=== PATIENT | male | born 1965 | race Two or more races ===

== ENCOUNTER 2020-09-03 22:17 | Emergency (ER) | payer MEDICAID ==
[~2020-09-03] VITALS: Ht 165.1 cm; Wt 90.7 kg
[~2020-09-03 22:17] MED LIST: FURO1TAB31 PO; KLOR CON PO; WARF2.5T PO; [UNRECOGNIZED DRUG - OTHER] PO
[2020-09-03 22:21] VITALS: BP 134/81
== END 2020-09-04 00:10 | disposition left against medical advice (07) ==
LOC: ER 22:17
DX: R07.89 Other chest pain (principal); R05 Cough; Z53.21 Procedure and treatment not carried out due to patient leaving prior to being seen by health care provider
CPT/HCPCS: 93005

== ENCOUNTER 2021-08-05 07:53 | Emergency (ER) | payer MEDICAID ==
[~2021-08-05] VITALS: Ht 170.2 cm; Wt 104.3 kg
[2021-08-05 08:39] LABS: Basophils # (auto) 0.1 10 ^3/uL (0-0.2); Basophils % (auto) 0.9 % (0.0-2.0); Eosinophils # (auto) 0.3 10 ^3/uL (0-0.8); Eosinophils % (auto) 4.4 % (0.0-7.0); Hematocrit 45.5 % (41.0-53.0); Lymphocytes # (auto) 2.5 10 ^3/uL (0.4-5.4); Lymphocytes % (auto) 32.5 % (10.0-50.0); Mean Corpuscular Hemoglobin 30.7 pg (28.0-32.0); Mean Corpuscular Hgb Conc. 35.3 g/dL (32.0-36.0); Mean Corpuscular Volume 86.9 fL (80.0-100.0); Monocytes # (auto) 0.7 10 ^3/uL (0-1.3); Monocytes % (auto) 9.6 % (0.0-12.0); Neutrophils % (auto) 52.6 % (37.0-80.0); Nucleated Red Blood Cells % 0.1 %; Red Blood Cells 5.23 10^6/uL (4.5-5.90); Red Cell Distribution Width 13.4 % (11.8-14.3); White Blood Cell 7.7 10^3/uL (4.4-10.8)
[2021-08-05 08:48] LABS: Urine Bacteria FEW /hpf (None Seen); Urine Blood TRACE /uL (Negative); Urine Specific Gravity 1.004 (1.001-1.035); Urine WBC <1 /hpf (0 - 3)
[2021-08-05 08:59] LABS: INR 2.75 (0.9-1.15); Partial Thromboplastin Time 44.2 sec (23.6-33.0)
[2021-08-05 09:00] LABS: Albumin 3.7 g/dL (3.4-5.0); Calcium 8.9 mg/dL (8.5-10.1); Potassium 3.9 mmol/L (3.5-5.1)
[2021-08-05 09:03] LABS: BUN/Creatinine Ratio 19.2; Bilirubin, Total 0.6 mg/dL (0.2-1.0); Total Protein 7.6 g/dL (6.4-8.2)
[2021-08-05] MEDS ORDERED: IOHEXOL 350 MG/ML 100ML IJ ONE (09:22)
[2021-08-05] MEDS ORDERED: AZITHROMYCIN 250 MG TAB PO ONE (14:15)
[2021-08-05] MEDS ORDERED: cefTRIAXone 1GM/50ML D5W 50 ML IV ONE (14:15)
[2021-08-05] MEDS ORDERED: cefTRIAXone SOD 1,000 MG VL ONE (14:51)
[2021-08-05] MEDS ORDERED: LIDOCAINE 1%HCL (LOCAL ANESTH) 10 ML MDV ONE (14:51)
[2021-08-05 14:57] VITALS: BP 142/74
[2021-08-05] MEDS ORDERED: cefTRIAXone W LIDOCAINE 1 GM IM IM ONE (15:00)
[2021-08-05] MEDS ORDERED: ALBUAER3 IN (15:14)
[2021-08-05] MEDS ORDERED: AZIT250T9 PO (15:14)
== END 2021-08-05 16:33 | disposition home or self-care (01) ==
LOC: ER 07:53
DX: J18.9 Pneumonia, unspecified organism (principal); I10 Essential (primary) hypertension; I25.10 Atherosclerotic heart disease of native coronary artery without angina pectoris; E78.5 Hyperlipidemia, unspecified; F17.210 Nicotine dependence, cigarettes, uncomplicated; Z95.1 Presence of aortocoronary bypass graft; Z79.01 Long term (current) use of anticoagulants; Z79.899 Other long term (current) drug therapy
CPT/HCPCS: 36415; 71045; 71275; 80053; 81001; 83880; 84484; 85025; 85610; 85730; 93005; 96372; 99285; J0696; J2001; Q9967

== ENCOUNTER 2021-08-06 15:32 | Inpatient (IN) | payer MEDICAID ==
[~2021-08-06] VITALS: Ht 170.2 cm; Wt 100.0 kg
[2021-08-06] VITALS (9 sets, daily range): BP systolic 98–131; BP diastolic 35–80
[~2021-08-06 15:32] MED LIST changes: +ALBUAER3 IN; +AZIT250T9 PO
[2021-08-06] MEDS ORDERED: ALBUTEROL SULF 2.5 MG/0.5ML(0.5%) NEB SOLN NEB ONE (16:30)
[2021-08-06] MEDS ORDERED: methylPREDNISolone SOD SUCC 125 MG/2 ML VL IV ONE (16:30)
[2021-08-06] MEDS ORDERED: Acetam/CODEINE 120mg/12mg per 5mL UD PO ONE (17:00)
[2021-08-06 17:30] LABS: Hematocrit 40.5 % (41.0-53.0); Hemoglobin 13.8 g/dL (13.5-17.5); Mean Corpuscular Hemoglobin 30.3 pg (28.0-32.0); Mean Corpuscular Hgb Conc. 34.1 g/dL (32.0-36.0); Mean Corpuscular Volume 88.8 fL (80.0-100.0); Red Blood Cells 4.56 10^6/uL (4.5-5.90); Red Cell Distribution Width 13.8 % (11.8-14.3); White Blood Cell 7.9 10^3/uL (4.4-10.8)
[2021-08-06] MEDS ORDERED: AZITHROMYCIN 500MG/ 250ML 250 ML IV ONE ×2 (17:30→18:00)
[2021-08-06] MEDS ORDERED: cefTRIAXone 1GM/50ML D5W 50 ML IV ONE (17:30)
[2021-08-06 17:32] LABS: Basophils % (manual) 0 (0.0-2.0); Blast Cells 0; Metamyelocytes % 0; Myelocytes % 0; Promyelocytes % 0
[2021-08-06 17:37] LABS: Albumin 3.5 g/dL (3.4-5.0); BUN/Creatinine Ratio 18.2; Bilirubin, Total 0.4 mg/dL (0.2-1.0); Calcium 8.4 mg/dL (8.5-10.1); Magnesium 2.2 mg/dL (1.6-2.6); Potassium 3.9 mmol/L (3.5-5.1); Total Protein 7.7 g/dL (6.4-8.2)
[2021-08-06] MEDS ORDERED: SUCCINYLCHOLINE CHLORIDE 20 MG/ML 10ML VIAL IV ONE ×2 (17:39→17:45)
[2021-08-06] MEDS ORDERED: ETOMIDATE (2MG/ML) 20ML VIAL IV ONE ×2 (17:39→17:45)
[2021-08-06] MEDS ORDERED: MIDAZOLAM DRIP 50 mg/50mL 50 ML IV ONE (17:39)
[2021-08-06] MEDS: MIDAZOLAM DRIP 50 mg/50mL 50 ML IV SCH ×3 (17:45→23:10)
[2021-08-06] MEDS ORDERED: fentaNYL Drip 2500mCg/250mlNS 250 ML IV ONE (17:53)
[2021-08-06 18:00] LABS: Band Neutrophils % (manual) 1; Eosinophils % (manual) 6 (0-7); Lymphocytes % (manual) 36 (10.0-50.0); Monocytes % (manual) 5 (0-12); Reactive Lymphocytes 6
[2021-08-06] MEDS: fentaNYL Drip 2500mCg/250mlNS 250 ML IV SCH (18:00)
[2021-08-06] MEDS: NOREPINEPHRINE 8 MG/250ML KIT 250 ML IV SCH (18:00)
[2021-08-06] MEDS: PROPOFOL 100 ML IV SCH ×2 (20:45→23:10)
[2021-08-06] MEDS ORDERED: ONDANSETRON HCL 4 MG/2 ML VIAL IV PRN (21:00)
[2021-08-06] MEDS ORDERED: ACETAMINOPHEN 650 MG RECT SUPP PR PRN (21:00)
[2021-08-06 21:12] LABS: Lactic Acid w/Reflex 4.3 mmol/L (0.4-2.0)
[2021-08-06] MEDS ORDERED: MORPHINE SULFATE INJ 2 MG/ml SYRG IV PRN (21:30)
[2021-08-06] MEDS ORDERED: NITROGLYCERIN 0.4 MG SL TAB SL PRN (21:30)
[2021-08-06 21:41] LABS: Basophils # (auto) 0 10 ^3/uL (0-0.2); Basophils % (auto) 0.4 % (0.0-2.0); Eosinophils # (auto) 0.1 10 ^3/uL (0-0.8); Eosinophils % (auto) 0.5 % (0.0-7.0); Hematocrit 36.2 % (41.0-53.0); Hemoglobin 12.3 g/dL (13.5-17.5); Lymphocytes # (auto) 0.6 10 ^3/uL (0.4-5.4); Lymphocytes % (auto) 4.8 % (10.0-50.0); Mean Corpuscular Hemoglobin 30.3 pg (28.0-32.0); Mean Corpuscular Hgb Conc. 33.9 g/dL (32.0-36.0); Mean Corpuscular Volume 89.2 fL (80.0-100.0); Monocytes # (auto) 0.3 10 ^3/uL (0-1.3); Neutrophils # (auto) 10.4 10 ^3/uL (1.6-8.6); Neutrophils % (auto) 91.3 % (37.0-80.0); Nucleated Red Blood Cells % 0.1 %; Red Blood Cells 4.06 10^6/uL (4.5-5.90); Red Cell Distribution Width 13.8 % (11.8-14.3); White Blood Cell 11.4 10^3/uL (4.4-10.8)
[2021-08-06 22:09] LABS: Albumin 2.9 g/dL (3.4-5.0); Calcium 7.3 mg/dL (8.5-10.1)
[2021-08-06 22:14] LABS: BUN/Creatinine Ratio 24.4; Bilirubin, Total 0.4 mg/dL (0.2-1.0); Total Protein 6.2 g/dL (6.4-8.2)
[2021-08-06 22:21] LABS: Potassium 4.8 mmol/L (3.5-5.1)
[2021-08-06] MEDS: HEPARIN SODIUM (PORCINE) 5000 UNITS/ML 1ML VIAL SC SCH (23:09)
[2021-08-06] MEDS: FAMOTIDINE (10MG/ML) 2ML VL IV SCH (23:09)
[2021-08-06] MEDS: methylPREDNISolone SOD SUCC 40 MG/ML VL IV SCH (23:09)
[2021-08-07] VITALS (104 sets, daily range): BP systolic 85–131; BP diastolic 45–77
[2021-08-07] MEDS: MIDAZOLAM DRIP 50 mg/50mL 50 ML IV SCH ×7 (02:04→22:45)
[2021-08-07] MEDS: NOREPINEPHRINE 8 MG/250ML KIT 250 ML IV SCH (03:38)
[2021-08-07 03:46] LABS: Basophils # (auto) 0 10 ^3/uL (0-0.2); Basophils % (auto) 0.1 % (0.0-2.0); Eosinophils # (auto) 0 10 ^3/uL (0-0.8); Eosinophils % (auto) 0.1 % (0.0-7.0); Hematocrit 38.3 % (41.0-53.0); Lymphocytes # (auto) 0.8 10 ^3/uL (0.4-5.4); Lymphocytes % (auto) 3.7 % (10.0-50.0); Mean Corpuscular Hemoglobin 30.5 pg (28.0-32.0); Mean Corpuscular Hgb Conc. 33.9 g/dL (32.0-36.0); Mean Corpuscular Volume 89.9 fL (80.0-100.0); Monocytes # (auto) 0.9 10 ^3/uL (0-1.3); Monocytes % (auto) 4.3 % (0.0-12.0); Neutrophils # (auto) 19.7 10 ^3/uL (1.6-8.6); Neutrophils % (auto) 91.8 % (37.0-80.0); Nucleated Red Blood Cells % 0.1 %; Red Blood Cells 4.26 10^6/uL (4.5-5.90); White Blood Cell 21.5 10^3/uL (4.4-10.8)
[2021-08-07] MEDS: fentaNYL Drip 2500mCg/250mlNS 250 ML IV SCH ×2 (05:43→16:25)
[2021-08-07] MEDS: methylPREDNISolone SOD SUCC 40 MG/ML VL IV SCH ×3 (05:43→22:55)
[2021-08-07] MEDS ORDERED: DEXTROSE (50%) 50ML SYRG IV PRN (06:45)
[2021-08-07] MEDS: InsuLIN REG 1unit/0.01ml Soln (100units/ml) SC SCH ×3 (07:26→17:44)
[2021-08-07] MEDS: FAMOTIDINE (10MG/ML) 2ML VL IV SCH (09:44)
[2021-08-07] MEDS: cefTRIAXone 1GM/50ML D5W 50 ML IV SCH (09:44)
[2021-08-07] MEDS: HEPARIN SODIUM (PORCINE) 5000 UNITS/ML 1ML VIAL SC SCH (10:00)
[2021-08-07 10:27] LABS: Alanine Aminotransferase 53 U/L (16-61); Alkaline Phosphatase 73 U/L (45-117); Anion Gap 5 (5-15); Aspartate Aminotransferase 58 U/L (15-37); BUN/Creatinine Ratio 20.6; Blood Urea Nitrogen 47 mg/dL (7-18); Calcium 7.4 mg/dL (8.5-10.1); Carbon Dioxide 22 mmol/L (21-32); Chloride 112 mmol/L (98-107); GFR African American 39 mL/min; GFR Non-African American 32 mL/min; Glucose 178 mg/dL (74-106); Sodium 139 mmol/L (136-145)
[2021-08-07 10:28] LABS: Albumin 3.2 g/dL (3.4-5.0); Bilirubin, Total 0.4 mg/dL (0.2-1.0)
[2021-08-07 10:29] LABS: Potassium 7.5 mmol/L (3.5-5.1)
[2021-08-07] MEDS: AZITHROMYCIN 500MG/ 250ML 250 ML IV SCH (11:11)
[2021-08-07 11:24] LABS: INR 2.86 (0.9-1.15)
[2021-08-07] MEDS: PANTOPRAZOLE 40 MG/10 ML VIAL INJ IV SCH ×2 (11:27→22:44)
[2021-08-07 12:13] LABS: Albumin 3.2 g/dL (3.4-5.0); Calcium 7.2 mg/dL (8.5-10.1)
[2021-08-07 12:16] LABS: BUN/Creatinine Ratio 22.7; Bilirubin, Total 0.3 mg/dL (0.2-1.0)
[2021-08-07 12:17] LABS: Partial Thromboplastin Time 44.2 sec (23.6-33.0)
[2021-08-07 12:25] LABS: Potassium 7.3 mmol/L (3.5-5.1)
[2021-08-07] MEDS ORDERED: SODIUM BICARBONATE 8.4% INJ 50ML SYRINGE IV ONE (12:45)
[2021-08-07] MEDS ORDERED: InsuLIN REG 1unit/0.01ml Soln (100units/ml) IV ONE ×2 (12:45)
[2021-08-07] MEDS ORDERED: SODIUM BICARBONATE 8.4 % INJ 50ML VIAL IV ONE ×3 (12:45→17:30)
[2021-08-07] MEDS ORDERED: SODIUM CHLORIDE 0.9% 1,000 ML IV SCH (12:45)
[2021-08-07] MEDS ORDERED: CALCIUM GLUC 1,000mg/50ml-NS 50 ML IV ONE (12:45)
[2021-08-07] MEDS ORDERED: ALBUTEROL SULF 2.5 MG/0.5ML(0.5%) NEB SOLN NEB ONE (12:45)
[2021-08-07] MEDS ORDERED: DEXTROSE (50%) 50ML SYRG IV ONE ×2 (12:45)
[2021-08-07] MEDS ORDERED: FUROSEMIDE 20 MG/2 ML VIAL IV ONE (12:45)
[2021-08-07] MEDS ORDERED: FUROSEMIDE 40 MG/4 ML VIAL IV ONE (13:00)
[2021-08-07] MEDS: ALBUTEROL SULF 2.5 MG/0.5ML(0.5%) NEB SOLN NEB ONE ×2 (13:03→15:47)
[2021-08-07] MEDS: ACCU-CHEK COMFORT CURVE STRIP VI SCH ×2 (13:27→17:44)
[2021-08-07] MEDS: SODIUM ZIRCONIUM CYCL 10 GM PAK GT SCH ×2 (15:15→22:44)
[2021-08-07] MEDS: DOPamine 1600MCG/ML D5W 250 ML IV SCH (16:04)
[2021-08-07 16:18] LABS: Protein, Urine 17.7 mg/dL (0.0-11.9)
[2021-08-07] MEDS: SODIUM BICARBONATE 50ML VIAL 50 ML in SOD CHL 0.45% 1,000 ML IV SCH ×2 (16:26→22:45)
[2021-08-07 17:36] LABS: Urine Blood 3+ /uL (Negative); Urine Specific Gravity 1.014 (1.001-1.035)
[2021-08-07 18:06] LABS: BUN/Creatinine Ratio 29.6; Calcium 7.8 mg/dL (8.5-10.1); Potassium 4.9 mmol/L (3.5-5.1)
[2021-08-07 19:39] LABS: Urine Bacteria 1+ /hpf (None Seen); Urine Mucus MODERATE (None Seen)
[2021-08-07 19:41] LABS: Urine Amorphous Sediment Moderate /hpf
[2021-08-07] MEDS ORDERED: DOCU100T15 PO (21:31)
[2021-08-07] MEDS ORDERED: RALT400T PO (21:31)
[2021-08-07] MEDS ORDERED: FURO20TA3 PO (21:31)
[2021-08-07] MEDS ORDERED: CHOL20007 OR (21:31)
[2021-08-07] MEDS ORDERED: ETRA100T3 PO (21:31)
[2021-08-07] MEDS ORDERED: MULT-930 PO (21:31)
[2021-08-07] MEDS ORDERED: WARF5TAB71 PO (21:31)
[2021-08-07] MEDS ORDERED: ATOR10TA PO (21:31)
[2021-08-07] MEDS ORDERED: CHOL20007 PO (21:31)
[2021-08-07] MEDS ORDERED: PANT40TA2 PO (21:31)
[2021-08-07] MEDS ORDERED: NIFE1TAB31 PO (21:31)
[2021-08-07] MEDS ORDERED: DARU1TAB2 PO (21:31)
[2021-08-07] MEDS ORDERED: LISI-716 PO (21:31)
[2021-08-07] MEDS ORDERED: ATEN-60 PO (21:31)
[2021-08-08] VITALS (107 sets, daily range): BP systolic 105–160; BP diastolic 45–97
[2021-08-08] MEDS: ACCU-CHEK COMFORT CURVE STRIP VI SCH ×4 (00:19→17:50)
[2021-08-08] MEDS: InsuLIN REG 1unit/0.01ml Soln (100units/ml) SC SCH ×4 (00:20→17:50)
[2021-08-08] MEDS: MIDAZOLAM DRIP 50 mg/50mL 50 ML IV SCH ×6 (01:20→22:55)
[2021-08-08 03:53] LABS: Basophils # (auto) 0 10 ^3/uL (0-0.2); Basophils % (auto) 0.1 % (0.0-2.0); Eosinophils # (auto) 0 10 ^3/uL (0-0.8); Hematocrit 34.8 % (41.0-53.0); Hemoglobin 11.9 g/dL (13.5-17.5); Lymphocytes # (auto) 0.7 10 ^3/uL (0.4-5.4); Lymphocytes % (auto) 5.5 % (10.0-50.0); Mean Corpuscular Hemoglobin 30.4 pg (28.0-32.0); Mean Corpuscular Hgb Conc. 34.3 g/dL (32.0-36.0); Mean Corpuscular Volume 88.8 fL (80.0-100.0); Monocytes # (auto) 0.7 10 ^3/uL (0-1.3); Monocytes % (auto) 5.9 % (0.0-12.0); Neutrophils # (auto) 10.6 10 ^3/uL (1.6-8.6); Neutrophils % (auto) 88.5 % (37.0-80.0); Red Blood Cells 3.92 10^6/uL (4.5-5.90); Red Cell Distribution Width 13.8 % (11.8-14.3)
[2021-08-08 04:11] LABS: INR 2.18 (0.9-1.15); Partial Thromboplastin Time 40.6 sec (23.6-33.0)
[2021-08-08 04:12] LABS: BUN/Creatinine Ratio 32.4; Calcium 7.5 mg/dL (8.5-10.1); Potassium 4.7 mmol/L (3.5-5.1)
[2021-08-08] MEDS: fentaNYL Drip 2500mCg/250mlNS 250 ML IV SCH ×2 (05:15→17:05)
[2021-08-08] MEDS: SODIUM BICARBONATE 50ML VIAL 50 ML in SOD CHL 0.45% 1,000 ML IV SCH ×4 (05:22→22:00)
[2021-08-08] MEDS: SODIUM ZIRCONIUM CYCL 10 GM PAK GT SCH (06:09)
[2021-08-08] MEDS: methylPREDNISolone SOD SUCC 40 MG/ML VL IV SCH ×3 (06:09→22:10)
[2021-08-08] MEDS: PROPOFOL 100 ML IV SCH ×2 (07:30→11:48)
[2021-08-08] MEDS: cefTRIAXone 1GM/50ML D5W 50 ML IV SCH (09:02)
[2021-08-08] MEDS: AZITHROMYCIN 500MG/ 250ML 250 ML IV SCH (09:17)
[2021-08-08] MEDS: PANTOPRAZOLE 40 MG/10 ML VIAL INJ IV SCH ×2 (09:17→22:10)
[2021-08-08 13:45] LABS: Hepatitis C Antibody Positive (Negative)
[2021-08-08] MEDS: DOPamine 1600MCG/ML D5W 250 ML IV SCH (15:15)
[2021-08-08] MEDS: NOREPINEPHRINE 8 MG/250ML KIT 250 ML IV SCH (17:09)
[2021-08-08] MEDS: SODIUM CHLOR 0.9% PF (SALINE LOCK) 10ML VIAL/SYR IV SCH (22:10)
[2021-08-09] VITALS (105 sets, daily range): BP systolic 114–181; BP diastolic 52–104
[2021-08-09] MEDS: InsuLIN REG 1unit/0.01ml Soln (100units/ml) SC SCH ×5 (00:58→23:45)
[2021-08-09] MEDS: MIDAZOLAM DRIP 50 mg/50mL 50 ML IV SCH ×6 (02:40→20:33)
[2021-08-09] MEDS: SODIUM BICARBONATE 50ML VIAL 50 ML in SOD CHL 0.45% 1,000 ML IV SCH (05:44)
[2021-08-09] MEDS: methylPREDNISolone SOD SUCC 40 MG/ML VL IV SCH ×3 (05:56→22:07)
[2021-08-09] MEDS: ACCU-CHEK COMFORT CURVE STRIP VI SCH ×5 (06:04→23:45)
[2021-08-09 07:49] LABS: Basophils # (auto) 0 10 ^3/uL (0-0.2); Basophils % (auto) 0.3 % (0.0-2.0); Eosinophils # (auto) 0.1 10 ^3/uL (0-0.8); Eosinophils % (auto) 0.6 % (0.0-7.0); Hematocrit 30.2 % (41.0-53.0); Hemoglobin 10.7 g/dL (13.5-17.5); Lymphocytes # (auto) 0.6 10 ^3/uL (0.4-5.4); Lymphocytes % (auto) 5.9 % (10.0-50.0); Mean Corpuscular Hemoglobin 31.4 pg (28.0-32.0); Mean Corpuscular Hgb Conc. 35.3 g/dL (32.0-36.0); Mean Corpuscular Volume 88.8 fL (80.0-100.0); Monocytes # (auto) 0.7 10 ^3/uL (0-1.3); Monocytes % (auto) 6.3 % (0.0-12.0); Neutrophils # (auto) 9.1 10 ^3/uL (1.6-8.6); Neutrophils % (auto) 86.9 % (37.0-80.0); Nucleated Red Blood Cells % 0.1 %; White Blood Cell 10.4 10^3/uL (4.4-10.8)
[2021-08-09 08:06] LABS: Albumin 2.4 g/dL (3.4-5.0); Potassium 4.2 mmol/L (3.5-5.1)
[2021-08-09 08:10] LABS: BUN/Creatinine Ratio 50.5; Bilirubin, Total 0.8 mg/dL (0.2-1.0); Total Protein 5.3 g/dL (6.4-8.2)
[2021-08-09] MEDS: hydrALAZINE HCL 20 MG/ML VL IV PRN (08:16)
[2021-08-09] MEDS: cefTRIAXone 1GM/50ML D5W 50 ML IV SCH (09:17)
[2021-08-09] MEDS: SODIUM CHLOR 0.9% PF (SALINE LOCK) 10ML VIAL/SYR IV SCH ×2 (09:19→22:08)
[2021-08-09] MEDS: PANTOPRAZOLE 40 MG/10 ML VIAL INJ IV SCH ×2 (09:19→22:08)
[2021-08-09] MEDS: AZITHROMYCIN 500MG/ 250ML 250 ML IV SCH (09:19)
[2021-08-09] MEDS ORDERED: SOD CHL 0.45% 1,000 ML IV SCH (09:45)
[2021-08-09] MEDS ORDERED: POTASSIUM EFFERVESENT TAB 25 MEQ PO ONE (12:30)
[2021-08-09] MEDS ORDERED: FUROSEMIDE 40 MG/4 ML VIAL IV ONE (12:30)
[2021-08-09] MEDS: PROPOFOL 100 ML IV SCH ×3 (15:11→23:03)
[2021-08-09] MEDS: DOPamine 1600MCG/ML D5W 250 ML IV SCH (15:24)
[2021-08-09] MEDS: fentaNYL Drip 2500mCg/250mlNS 250 ML IV SCH (17:43)
[2021-08-09] MEDS: ATORVASTATIN 20 MG TAB PO SCH (22:08)
[2021-08-10] VITALS (101 sets, daily range): BP systolic 118–153; BP diastolic 74–91
[2021-08-10] MEDS: MIDAZOLAM DRIP 50 mg/50mL 50 ML IV SCH ×9 (00:45→23:55)
[2021-08-10] MEDS: PROPOFOL 100 ML IV SCH ×6 (02:11→22:48)
[2021-08-10 03:44] LABS: Basophils # (auto) 0 10 ^3/uL (0-0.2); Basophils % (auto) 0.1 % (0.0-2.0); Eosinophils # (auto) 0 10 ^3/uL (0-0.8); Eosinophils % (auto) 0.3 % (0.0-7.0); Hematocrit 32.9 % (41.0-53.0); Hemoglobin 11.4 g/dL (13.5-17.5); Lymphocytes # (auto) 0.8 10 ^3/uL (0.4-5.4); Lymphocytes % (auto) 8.2 % (10.0-50.0); Mean Corpuscular Hemoglobin 30.6 pg (28.0-32.0); Mean Corpuscular Hgb Conc. 34.6 g/dL (32.0-36.0); Mean Corpuscular Volume 88.5 fL (80.0-100.0); Monocytes # (auto) 0.7 10 ^3/uL (0-1.3); Monocytes % (auto) 6.4 % (0.0-12.0); Neutrophils # (auto) 8.6 10 ^3/uL (1.6-8.6); Red Blood Cells 3.72 10^6/uL (4.5-5.90); Red Cell Distribution Width 13.7 % (11.8-14.3); White Blood Cell 10.1 10^3/uL (4.4-10.8)
[2021-08-10 03:58] LABS: BUN/Creatinine Ratio 46.5; Calcium 7.5 mg/dL (8.5-10.1); Potassium 4.6 mmol/L (3.5-5.1)
[2021-08-10] MEDS: fentaNYL Drip 2500mCg/250mlNS 250 ML IV SCH ×2 (04:35→17:10)
[2021-08-10] MEDS: ACCU-CHEK COMFORT CURVE STRIP VI SCH ×3 (05:48→18:09)
[2021-08-10] MEDS: InsuLIN REG 1unit/0.01ml Soln (100units/ml) SC SCH ×3 (05:48→18:00)
[2021-08-10] MEDS: methylPREDNISolone SOD SUCC 40 MG/ML VL IV SCH ×3 (05:48→22:00)
[2021-08-10] MEDS: cefTRIAXone 1GM/50ML D5W 50 ML IV SCH (09:01)
[2021-08-10] MEDS: SODIUM CHLOR 0.9% PF (SALINE LOCK) 10ML VIAL/SYR IV SCH ×2 (10:23→22:00)
[2021-08-10] MEDS: PANTOPRAZOLE 40 MG/10 ML VIAL INJ IV SCH ×2 (10:23→22:00)
[2021-08-10] MEDS: SOD CHL 0.45% 1,000 ML IV SCH ×2 (11:27→22:48)
[2021-08-10] MEDS ORDERED: PIPERACILLIN-TAZOB 3.375GM 100 ML IV SCH (12:00)
[2021-08-10 12:23] LABS: INR 1.14 (0.9-1.15)
[2021-08-10] MEDS: ATORVASTATIN 20 MG TAB PO SCH (22:00)
[2021-08-11] VITALS (102 sets, daily range): BP systolic 112–170; BP diastolic 73–111
[2021-08-11] MEDS: ACCU-CHEK COMFORT CURVE STRIP VI SCH ×5 (00:27→23:59)
[2021-08-11] MEDS: PROPOFOL 100 ML IV SCH ×6 (02:00→21:15)
[2021-08-11] MEDS: MIDAZOLAM DRIP 50 mg/50mL 50 ML IV SCH ×6 (03:30→22:34)
[2021-08-11 04:19] LABS: Basophils # (auto) 0 10 ^3/uL (0-0.2); Basophils % (auto) 0.2 % (0.0-2.0); Eosinophils # (auto) 0 10 ^3/uL (0-0.8); Hematocrit 35.2 % (41.0-53.0); Hemoglobin 12.4 g/dL (13.5-17.5); Lymphocytes # (auto) 1.1 10 ^3/uL (0.4-5.4); Lymphocytes % (auto) 11.1 % (10.0-50.0); Mean Corpuscular Hemoglobin 31.2 pg (28.0-32.0); Mean Corpuscular Hgb Conc. 35.1 g/dL (32.0-36.0); Mean Corpuscular Volume 88.8 fL (80.0-100.0); Monocytes # (auto) 0.8 10 ^3/uL (0-1.3); Monocytes % (auto) 7.9 % (0.0-12.0); Neutrophils # (auto) 7.9 10 ^3/uL (1.6-8.6); Neutrophils % (auto) 80.8 % (37.0-80.0); Nucleated Red Blood Cells % 0.3 %; Red Blood Cells 3.97 10^6/uL (4.5-5.90); Red Cell Distribution Width 13.6 % (11.8-14.3); White Blood Cell 9.8 10^3/uL (4.4-10.8)
[2021-08-11 04:35] LABS: BUN/Creatinine Ratio 42.2; Calcium 7.6 mg/dL (8.5-10.1)
[2021-08-11] MEDS: fentaNYL Drip 2500mCg/250mlNS 250 ML IV SCH ×2 (05:00→18:43)
[2021-08-11] MEDS: DOPamine 1600MCG/ML D5W 250 ML IV SCH (05:55)
[2021-08-11] MEDS: InsuLIN REG 1unit/0.01ml Soln (100units/ml) SC SCH ×5 (05:59→23:59)
[2021-08-11] MEDS: methylPREDNISolone SOD SUCC 40 MG/ML VL IV SCH ×3 (06:04→22:35)
[2021-08-11] MEDS ORDERED: EPINEPHrine HCL 1 MG/1 ML AMP ONE (08:54)
[2021-08-11] MEDS ORDERED: SODIUM CHLORIDE LOCK 0 ML ONE (08:54)
[2021-08-11] MEDS ORDERED: MIDAZOLAM HCL 5 MG/ML-1ML VIAL ONE (08:55)
[2021-08-11] MEDS ORDERED: LIDOCAINE HCL 2% TOP JELLY 5ML TOP ONE (08:56)
[2021-08-11] MEDS ORDERED: LIDOCAINE 2%HCL (LOCAL ANESTH.) INJ 20ML MDV ONE (08:56)
[2021-08-11] MEDS: PANTOPRAZOLE 40 MG/10 ML VIAL INJ IV SCH ×2 (10:00→22:34)
[2021-08-11] MEDS: SODIUM CHLOR 0.9% PF (SALINE LOCK) 10ML VIAL/SYR IV SCH ×2 (10:00→22:35)
[2021-08-11] MEDS: ATORVASTATIN 20 MG TAB PO SCH (22:35)
[2021-08-12] VITALS (101 sets, daily range): BP systolic 118–159; BP diastolic 72–92
[2021-08-12] MEDS: PROPOFOL 100 ML IV SCH ×4 (00:41→20:42)
[2021-08-12] MEDS: MIDAZOLAM DRIP 50 mg/50mL 50 ML IV SCH ×8 (02:09→22:53)
[2021-08-12 03:56] LABS: Basophils # (auto) 0 10 ^3/uL (0-0.2); Basophils % (auto) 0.3 % (0.0-2.0); Eosinophils # (auto) 0 10 ^3/uL (0-0.8); Hematocrit 32.7 % (41.0-53.0); Hemoglobin 11.6 g/dL (13.5-17.5); Lymphocytes # (auto) 1.2 10 ^3/uL (0.4-5.4); Lymphocytes % (auto) 11.3 % (10.0-50.0); Mean Corpuscular Hemoglobin 31.3 pg (28.0-32.0); Mean Corpuscular Hgb Conc. 35.4 g/dL (32.0-36.0); Mean Corpuscular Volume 88.4 fL (80.0-100.0); Monocytes # (auto) 0.9 10 ^3/uL (0-1.3); Monocytes % (auto) 9.1 % (0.0-12.0); Neutrophils # (auto) 8.2 10 ^3/uL (1.6-8.6); Neutrophils % (auto) 79.3 % (37.0-80.0); Nucleated Red Blood Cells % 0.2 %; Red Cell Distribution Width 13.3 % (11.8-14.3); White Blood Cell 10.3 10^3/uL (4.4-10.8)
[2021-08-12 04:16] LABS: INR 1.12 (0.9-1.15); Partial Thromboplastin Time 23.4 sec (23.6-33.0)
[2021-08-12 04:17] LABS: Calcium 7.8 mg/dL (8.5-10.1); Potassium 4.7 mmol/L (3.5-5.1)
[2021-08-12] MEDS: fentaNYL Drip 2500mCg/250mlNS 250 ML IV SCH ×2 (04:34→16:01)
[2021-08-12] MEDS: ACCU-CHEK COMFORT CURVE STRIP VI SCH ×3 (06:00→17:55)
[2021-08-12] MEDS: InsuLIN REG 1unit/0.01ml Soln (100units/ml) SC SCH ×3 (06:30→17:54)
[2021-08-12] MEDS: methylPREDNISolone SOD SUCC 40 MG/ML VL IV SCH ×3 (06:30→22:03)
[2021-08-12] MEDS: PANTOPRAZOLE 40 MG/10 ML VIAL INJ IV SCH ×2 (09:20→22:02)
[2021-08-12] MEDS: SODIUM CHLOR 0.9% PF (SALINE LOCK) 10ML VIAL/SYR IV SCH ×2 (09:20→22:02)
[2021-08-12] MEDS ORDERED: HEPARIN SODIUM (PORCINE) 5000 UNITS/ML 1ML VIAL IV ONE (13:30)
[2021-08-12] MEDS ORDERED: HEPARIN DRIP/D5W 100UNITS/ML 250 ML IV SCH (13:30)
[2021-08-12 14:23] LABS: Basophils # (auto) 0.1 10 ^3/uL (0-0.2); Basophils % (auto) 0.6 % (0.0-2.0); Eosinophils # (auto) 0 10 ^3/uL (0-0.8); Hematocrit 33.5 % (41.0-53.0); Hemoglobin 11.8 g/dL (13.5-17.5); Lymphocytes # (auto) 1.4 10 ^3/uL (0.4-5.4); Lymphocytes % (auto) 13.6 % (10.0-50.0); Mean Corpuscular Hemoglobin 31.1 pg (28.0-32.0); Mean Corpuscular Hgb Conc. 35.2 g/dL (32.0-36.0); Mean Corpuscular Volume 88.2 fL (80.0-100.0); Monocytes # (auto) 1.1 10 ^3/uL (0-1.3); Monocytes % (auto) 10.5 % (0.0-12.0); Neutrophils # (auto) 7.9 10 ^3/uL (1.6-8.6); Neutrophils % (auto) 75.3 % (37.0-80.0); Nucleated Red Blood Cells % 0.3 %; Red Cell Distribution Width 13.3 % (11.8-14.3); White Blood Cell 10.5 10^3/uL (4.4-10.8)
[2021-08-12 14:44] LABS: INR 1.1 (0.9-1.15); Partial Thromboplastin Time 22.2 sec (23.6-33.0)
[2021-08-12] MEDS: HEPARIN DRIP/D5W 100UNITS/ML 250 ML IV SCH (16:43)
[2021-08-12] MEDS: ATORVASTATIN 20 MG TAB PO SCH (22:03)
[2021-08-12 23:38] LABS: INR 1.13 (0.9-1.15)
[2021-08-13] VITALS (103 sets, daily range): BP systolic 103–150; BP diastolic 68–102
[2021-08-13] MEDS: ACCU-CHEK COMFORT CURVE STRIP VI SCH ×5 (00:20→23:40)
[2021-08-13] MEDS: PROPOFOL 100 ML IV SCH ×6 (00:21→23:09)
[2021-08-13] MEDS: MIDAZOLAM DRIP 50 mg/50mL 50 ML IV SCH ×7 (02:20→23:09)
[2021-08-13] MEDS: fentaNYL Drip 2500mCg/250mlNS 250 ML IV SCH ×2 (04:26→08:32)
[2021-08-13 05:52] LABS: Basophils # (auto) 0 10 ^3/uL (0-0.2); Basophils % (auto) 0.3 % (0.0-2.0); Eosinophils # (auto) 0.1 10 ^3/uL (0-0.8); Eosinophils % (auto) 0.7 % (0.0-7.0); Hematocrit 34.1 % (41.0-53.0); Lymphocytes # (auto) 1.4 10 ^3/uL (0.4-5.4); Lymphocytes % (auto) 13.4 % (10.0-50.0); Mean Corpuscular Hemoglobin 31.1 pg (28.0-32.0); Mean Corpuscular Hgb Conc. 35.1 g/dL (32.0-36.0); Mean Corpuscular Volume 88.5 fL (80.0-100.0); Monocytes # (auto) 1.1 10 ^3/uL (0-1.3); Monocytes % (auto) 10.6 % (0.0-12.0); Neutrophils # (auto) 7.8 10 ^3/uL (1.6-8.6); Nucleated Red Blood Cells % 0.5 %; Red Blood Cells 3.85 10^6/uL (4.5-5.90); Red Cell Distribution Width 13.1 % (11.8-14.3); White Blood Cell 10.4 10^3/uL (4.4-10.8)
[2021-08-13] MEDS: InsuLIN REG 1unit/0.01ml Soln (100units/ml) SC SCH ×5 (06:00→23:40)
[2021-08-13] MEDS: methylPREDNISolone SOD SUCC 40 MG/ML VL IV SCH ×3 (06:00→21:02)
[2021-08-13 06:01] LABS: Calcium 7.8 mg/dL (8.5-10.1); Potassium 4.8 mmol/L (3.5-5.1)
[2021-08-13 06:03] LABS: INR 1.14 (0.9-1.15); Partial Thromboplastin Time 40.6 sec (23.6-33.0)
[2021-08-13 06:04] LABS: BUN/Creatinine Ratio 52.5
[2021-08-13] MEDS: SODIUM CHLOR 0.9% PF (SALINE LOCK) 10ML VIAL/SYR IV SCH ×2 (10:02→21:02)
[2021-08-13] MEDS: HEPARIN DRIP/D5W 100UNITS/ML 250 ML IV SCH (10:05)
[2021-08-13] MEDS: PANTOPRAZOLE 40 MG/10 ML VIAL INJ IV SCH ×2 (11:05→21:02)
[2021-08-13 12:22] LABS: INR 1.21 (0.9-1.15); Partial Thromboplastin Time 65.1 sec (23.6-33.0)
[2021-08-13 20:28] LABS: INR 1.13 (0.9-1.15)
[2021-08-13 20:41] LABS: Partial Thromboplastin Time 97.1 sec (23.6-33.0)
[2021-08-13] MEDS: ATORVASTATIN 20 MG TAB PO SCH (21:02)
[2021-08-14] VITALS (104 sets, daily range): BP systolic 104–129; BP diastolic 65–81
[2021-08-14] MEDS: MIDAZOLAM DRIP 50 mg/50mL 50 ML IV SCH ×7 (03:38→17:43)
[2021-08-14] MEDS: HEPARIN DRIP/D5W 100UNITS/ML 250 ML IV SCH (03:39)
[2021-08-14] MEDS: PROPOFOL 100 ML IV SCH ×4 (03:40→16:00)
[2021-08-14] MEDS: fentaNYL Drip 2500mCg/250mlNS 250 ML IV SCH (03:41)
[2021-08-14 05:22] LABS: Basophils # (auto) 0 10 ^3/uL (0-0.2); Basophils % (auto) 0.4 % (0.0-2.0); Eosinophils # (auto) 0 10 ^3/uL (0-0.8); Eosinophils % (auto) 0.2 % (0.0-7.0); Hematocrit 35.5 % (41.0-53.0); Hemoglobin 12.2 g/dL (13.5-17.5); Lymphocytes # (auto) 1.7 10 ^3/uL (0.4-5.4); Lymphocytes % (auto) 13.8 % (10.0-50.0); Mean Corpuscular Hemoglobin 30.7 pg (28.0-32.0); Mean Corpuscular Hgb Conc. 34.3 g/dL (32.0-36.0); Mean Corpuscular Volume 89.7 fL (80.0-100.0); Monocytes # (auto) 1.1 10 ^3/uL (0-1.3); Neutrophils # (auto) 9.4 10 ^3/uL (1.6-8.6); Neutrophils % (auto) 76.6 % (37.0-80.0); Nucleated Red Blood Cells % 0.2 %; Red Blood Cells 3.96 10^6/uL (4.5-5.90); Red Cell Distribution Width 13.4 % (11.8-14.3); White Blood Cell 12.2 10^3/uL (4.4-10.8)
[2021-08-14 05:35] LABS: INR 1.16 (0.9-1.15); Partial Thromboplastin Time 68.9 sec (23.6-33.0)
[2021-08-14] MEDS: methylPREDNISolone SOD SUCC 40 MG/ML VL IV SCH ×3 (05:38→20:26)
[2021-08-14 05:45] LABS: Albumin 2.6 g/dL (3.4-5.0); Calcium 8.1 mg/dL (8.5-10.1); Potassium 4.7 mmol/L (3.5-5.1)
[2021-08-14 05:48] LABS: BUN/Creatinine Ratio 45.2
[2021-08-14 05:51] LABS: Bilirubin, Total 0.8 mg/dL (0.2-1.0); Total Protein 5.6 g/dL (6.4-8.2)
[2021-08-14] MEDS: ACCU-CHEK COMFORT CURVE STRIP VI SCH ×3 (05:54→17:49)
[2021-08-14] MEDS: InsuLIN REG 1unit/0.01ml Soln (100units/ml) SC SCH ×3 (05:54→17:48)
[2021-08-14] MEDS: PANTOPRAZOLE 40 MG/10 ML VIAL INJ IV SCH ×2 (09:31→20:27)
[2021-08-14] MEDS: SODIUM CHLOR 0.9% PF (SALINE LOCK) 10ML VIAL/SYR IV SCH ×2 (09:31→20:27)
[2021-08-14 12:01] LABS: INR 1.14 (0.9-1.15); Partial Thromboplastin Time 68.5 sec (23.6-33.0)
[2021-08-14 17:14] LABS: INR 1.16 (0.9-1.15); Partial Thromboplastin Time 68.2 sec (23.6-33.0)
[2021-08-14] MEDS: ATORVASTATIN 20 MG TAB PO SCH (20:27)
[2021-08-15] VITALS (91 sets, daily range): BP systolic 93–131; BP diastolic 61–85
[2021-08-15] MEDS: MIDAZOLAM DRIP 50 mg/50mL 50 ML IV SCH ×7 (00:18→21:20)
[2021-08-15] MEDS: ACCU-CHEK COMFORT CURVE STRIP VI SCH ×5 (00:18→23:20)
[2021-08-15] MEDS: HEPARIN DRIP/D5W 100UNITS/ML 250 ML IV SCH (00:19)
[2021-08-15] MEDS: PROPOFOL 100 ML IV SCH ×5 (00:20→21:50)
[2021-08-15 04:58] LABS: Albumin 2.5 g/dL (3.4-5.0); BUN/Creatinine Ratio 42.9; Potassium 4.9 mmol/L (3.5-5.1)
[2021-08-15 05:01] LABS: Bilirubin, Total 0.8 mg/dL (0.2-1.0); Total Protein 5.7 g/dL (6.4-8.2)
[2021-08-15] MEDS: InsuLIN REG 1unit/0.01ml Soln (100units/ml) SC SCH ×5 (05:03→23:20)
[2021-08-15 05:04] LABS: INR 1.16 (0.9-1.15)
[2021-08-15 05:14] LABS: Hematocrit 35.5 % (41.0-53.0); Hemoglobin 11.7 g/dL (13.5-17.5); Mean Corpuscular Hemoglobin 29.6 pg (28.0-32.0); Mean Corpuscular Volume 89.7 fL (80.0-100.0); Red Blood Cells 3.96 10^6/uL (4.5-5.90); Red Cell Distribution Width 13.7 % (11.8-14.3); White Blood Cell 12.7 10^3/uL (4.4-10.8)
[2021-08-15 05:16] LABS: Basophils % (manual) 0 (0.0-2.0); Blast Cells 0; Eosinophils % (manual) 0 (0-7); Metamyelocytes % 0; Myelocytes % 0; Promyelocytes % 0; Reactive Lymphocytes 0
[2021-08-15] MEDS: methylPREDNISolone SOD SUCC 40 MG/ML VL IV SCH ×3 (05:55→21:49)
[2021-08-15] MEDS: PANTOPRAZOLE 40 MG/10 ML VIAL INJ IV SCH ×2 (09:40→21:49)
[2021-08-15] MEDS: SODIUM CHLOR 0.9% PF (SALINE LOCK) 10ML VIAL/SYR IV SCH ×2 (09:40→21:49)
[2021-08-15 10:34] LABS: INR 1.17 (0.9-1.15); Partial Thromboplastin Time 66.5 sec (23.6-33.0)
[2021-08-15 11:52] LABS: Band Neutrophils % (manual) 2; Lymphocytes % (manual) 16 (10.0-50.0); Monocytes % (manual) 5 (0-12)
[2021-08-15] MEDS: fentaNYL Drip 2500mCg/250mlNS 250 ML IV SCH (13:18)
[2021-08-15 17:49] LABS: INR 1.16 (0.9-1.15); Partial Thromboplastin Time 58.4 sec (23.6-33.0)
[2021-08-15] MEDS: ATORVASTATIN 20 MG TAB PO SCH (21:50)
[2021-08-15 23:44] LABS: INR 1.16 (0.9-1.15)
[2021-08-16] VITALS (108 sets, daily range): BP systolic 96–150; BP diastolic 56–94
[2021-08-16] MEDS: MIDAZOLAM DRIP 50 mg/50mL 50 ML IV SCH ×8 (03:57→23:19)
[2021-08-16 04:10] LABS: Hematocrit 34.8 % (41.0-53.0); Hemoglobin 11.9 g/dL (13.5-17.5); Mean Corpuscular Hemoglobin 30.4 pg (28.0-32.0); Mean Corpuscular Hgb Conc. 34.1 g/dL (32.0-36.0); Mean Corpuscular Volume 89.2 fL (80.0-100.0); Red Cell Distribution Width 13.5 % (11.8-14.3)
[2021-08-16 04:22] LABS: Basophils % (manual) 0 (0.0-2.0); Blast Cells 0; Eosinophils % (manual) 0 (0-7); Promyelocytes % 0; Reactive Lymphocytes 0
[2021-08-16 04:26] LABS: Albumin 2.6 g/dL (3.4-5.0); Calcium 8.2 mg/dL (8.5-10.1); Potassium 4.9 mmol/L (3.5-5.1)
[2021-08-16 04:28] LABS: BUN/Creatinine Ratio 40.7
[2021-08-16 04:31] LABS: Bilirubin, Total 0.8 mg/dL (0.2-1.0); Total Protein 5.6 g/dL (6.4-8.2)
[2021-08-16 04:57] LABS: Band Neutrophils % (manual) 7; Lymphocytes % (manual) 8 (10.0-50.0); Metamyelocytes % 2; Monocytes % (manual) 3 (0-12); Myelocytes % 3
[2021-08-16] MEDS: InsuLIN REG 1unit/0.01ml Soln (100units/ml) SC SCH ×3 (05:03→17:42)
[2021-08-16] MEDS: ACCU-CHEK COMFORT CURVE STRIP VI SCH ×4 (05:03→23:59)
[2021-08-16] MEDS: methylPREDNISolone SOD SUCC 40 MG/ML VL IV SCH ×3 (05:05→22:26)
[2021-08-16] MEDS: PROPOFOL 100 ML IV SCH ×5 (06:24→23:19)
[2021-08-16] MEDS: fentaNYL Drip 2500mCg/250mlNS 250 ML IV SCH ×2 (06:26→12:22)
[2021-08-16 06:32] LABS: INR 1.14 (0.9-1.15); Partial Thromboplastin Time 41.3 sec (23.6-33.0)
[2021-08-16] MEDS ORDERED: GLYCOPYRROLATE 0.2 MG/ML 1ML VIAL ONE (08:14)
[2021-08-16] MEDS ORDERED: LIDOCAINE HCL 2% TOP JELLY 5ML TOP ONE (08:14)
[2021-08-16] MEDS ORDERED: SODIUM CHLORIDE LOCK 20 ML ONE (08:14)
[2021-08-16] MEDS ORDERED: EPINEPHrine HCL 1 MG/1 ML AMP ONE (08:14)
[2021-08-16] MEDS ORDERED: LIDOCAINE 2%HCL (LOCAL ANESTH.) INJ 20ML MDV ONE (08:14)
[2021-08-16] MEDS: PANTOPRAZOLE 40 MG/10 ML VIAL INJ IV SCH ×2 (09:58→22:26)
[2021-08-16] MEDS: SODIUM CHLOR 0.9% PF (SALINE LOCK) 10ML VIAL/SYR IV SCH ×2 (10:05→22:28)
[2021-08-16] MEDS: HEPARIN DRIP/D5W 100UNITS/ML 250 ML IV SCH (13:30)
[2021-08-16] MEDS: ATORVASTATIN 20 MG TAB PO SCH (22:27)
[2021-08-17] VITALS (106 sets, daily range): BP systolic 102–140; BP diastolic 67–88
[2021-08-17] MEDS: PROPOFOL 100 ML IV SCH ×6 (02:20→22:39)
[2021-08-17] MEDS: MIDAZOLAM DRIP 50 mg/50mL 50 ML IV SCH ×7 (03:20→23:51)
[2021-08-17 04:28] LABS: Basophils # (auto) 0.1 10 ^3/uL (0-0.2); Basophils % (auto) 0.3 % (0.0-2.0); Eosinophils # (auto) 0.1 10 ^3/uL (0-0.8); Eosinophils % (auto) 0.3 % (0.0-7.0); Hematocrit 36.3 % (41.0-53.0); Hemoglobin 12.4 g/dL (13.5-17.5); Lymphocytes # (auto) 1.4 10 ^3/uL (0.4-5.4); Lymphocytes % (auto) 7.3 % (10.0-50.0); Mean Corpuscular Hemoglobin 30.7 pg (28.0-32.0); Mean Corpuscular Hgb Conc. 34.2 g/dL (32.0-36.0); Mean Corpuscular Volume 89.9 fL (80.0-100.0); Monocytes % (auto) 10.5 % (0.0-12.0); Neutrophils # (auto) 15.3 10 ^3/uL (1.6-8.6); Neutrophils % (auto) 81.6 % (37.0-80.0); Nucleated Red Blood Cells % 0.1 %; Red Blood Cells 4.04 10^6/uL (4.5-5.90); White Blood Cell 18.7 10^3/uL (4.4-10.8)
[2021-08-17 04:52] LABS: Potassium 4.6 mmol/L (3.5-5.1)
[2021-08-17 05:00] LABS: Albumin 2.6 g/dL (3.4-5.0); BUN/Creatinine Ratio 49.1; Bilirubin, Total 1.1 mg/dL (0.2-1.0); Total Protein 5.7 g/dL (6.4-8.2)
[2021-08-17] MEDS: methylPREDNISolone SOD SUCC 40 MG/ML VL IV SCH ×2 (05:30→21:36)
[2021-08-17] MEDS: ACCU-CHEK COMFORT CURVE STRIP VI SCH ×3 (05:56→18:14)
[2021-08-17] MEDS: InsuLIN REG 1unit/0.01ml Soln (100units/ml) SC SCH ×4 (05:56→18:00)
[2021-08-17] MEDS: PANTOPRAZOLE 40 MG/10 ML VIAL INJ IV SCH ×2 (10:11→21:35)
[2021-08-17] MEDS: SODIUM CHLOR 0.9% PF (SALINE LOCK) 10ML VIAL/SYR IV SCH ×2 (10:11→22:11)
[2021-08-17] MEDS ORDERED: HEPARIN DRIP/D5W 100UNITS/ML 250 ML IV SCH (11:00)
[2021-08-17] MEDS: fentaNYL Drip 2500mCg/250mlNS 250 ML IV SCH ×3 (12:10→23:52)
[2021-08-17 13:41] LABS: INR 1.1 (0.9-1.15); Partial Thromboplastin Time 24.2 sec (23.6-33.0)
[2021-08-17] MEDS: HEPARIN DRIP/D5W 100UNITS/ML 250 ML IV SCH (14:13)
[2021-08-17 20:40] LABS: INR 1.16 (0.9-1.15); Partial Thromboplastin Time 31.9 sec (23.6-33.0)
[2021-08-17] MEDS: ATORVASTATIN 20 MG TAB PO SCH (21:36)
[2021-08-18] VITALS (104 sets, daily range): BP systolic 101–138; BP diastolic 68–87
[2021-08-18] MEDS: MIDAZOLAM DRIP 50 mg/50mL 50 ML IV SCH ×6 (01:50→20:52)
[2021-08-18] MEDS: HEPARIN DRIP/D5W 100UNITS/ML 250 ML IV SCH (02:20)
[2021-08-18 02:48] LABS: INR 1.21 (0.9-1.15)
[2021-08-18 03:15] LABS: Partial Thromboplastin Time > 139.0 sec (23.6-33.0)
[2021-08-18 05:08] LABS: Basophils # (auto) 0.1 10 ^3/uL (0-0.2); Basophils % (auto) 0.4 % (0.0-2.0); Eosinophils # (auto) 0.1 10 ^3/uL (0-0.8); Eosinophils % (auto) 0.3 % (0.0-7.0); Hematocrit 33.1 % (41.0-53.0); Hemoglobin 11.3 g/dL (13.5-17.5); Lymphocytes # (auto) 1.4 10 ^3/uL (0.4-5.4); Lymphocytes % (auto) 7.5 % (10.0-50.0); Mean Corpuscular Hemoglobin 30.9 pg (28.0-32.0); Mean Corpuscular Hgb Conc. 34.1 g/dL (32.0-36.0); Mean Corpuscular Volume 90.5 fL (80.0-100.0); Monocytes # (auto) 1.9 10 ^3/uL (0-1.3); Monocytes % (auto) 9.9 % (0.0-12.0); Neutrophils # (auto) 15.7 10 ^3/uL (1.6-8.6); Neutrophils % (auto) 81.9 % (37.0-80.0); Nucleated Red Blood Cells % 0.1 %; Red Blood Cells 3.65 10^6/uL (4.5-5.90); Red Cell Distribution Width 14.1 % (11.8-14.3); White Blood Cell 19.1 10^3/uL (4.4-10.8)
[2021-08-18 05:12] LABS: Anion Gap 9 (5-15); Blood Urea Nitrogen 45 mg/dL (7-18); Calcium 7.2 mg/dL (8.5-10.1); Carbon Dioxide 25 mmol/L (21-32); Chloride 107 mmol/L (98-107); Potassium 4.7 mmol/L (3.5-5.1); Sodium 141 mmol/L (136-145)
[2021-08-18 05:15] LABS: BUN/Creatinine Ratio 43.3; GFR African American 95 mL/min; GFR Non-African American 79 mL/min; Glucose 158 mg/dL (74-106)
[2021-08-18] MEDS: InsuLIN REG 1unit/0.01ml Soln (100units/ml) SC SCH ×5 (06:00→23:45)
[2021-08-18] MEDS: ACCU-CHEK COMFORT CURVE STRIP VI SCH ×5 (06:22→23:45)
[2021-08-18] MEDS: PROPOFOL 100 ML IV SCH ×4 (06:23→22:37)
[2021-08-18] MEDS: PANTOPRAZOLE 40 MG/10 ML VIAL INJ IV SCH ×2 (09:41→22:33)
[2021-08-18] MEDS: methylPREDNISolone SOD SUCC 40 MG/ML VL IV SCH ×2 (09:41→22:33)
[2021-08-18] MEDS: SODIUM CHLOR 0.9% PF (SALINE LOCK) 10ML VIAL/SYR IV SCH ×2 (09:42→22:00)
[2021-08-18] MEDS ORDERED: HEPARIN SODIUM (PORCINE) 5000 UNITS/ML 1ML VIAL IV ONE (10:15)
[2021-08-18] MEDS: fentaNYL Drip 2500mCg/250mlNS 250 ML IV SCH ×2 (11:22→23:16)
[2021-08-18] MEDS: PIPERACILLIN-TAZOB 3.375GM 100 ML IV SCH ×2 (12:15→17:31)
[2021-08-18] MEDS: Jevity 1.2 Cal/Fiber 1 Liter GT SCH (20:51)
[2021-08-18 22:24] LABS: INR 1.16 (0.9-1.15); Partial Thromboplastin Time 65.4 sec (23.6-33.0)
[2021-08-18] MEDS: ATORVASTATIN 20 MG TAB PO SCH (22:34)
[2021-08-19] VITALS (103 sets, daily range): BP systolic 96–144; BP diastolic 45–88
[2021-08-19] MEDS: PIPERACILLIN-TAZOB 3.375GM 100 ML IV SCH ×4 (00:37→17:38)
[2021-08-19] MEDS: MIDAZOLAM DRIP 50 mg/50mL 50 ML IV SCH ×7 (00:37→20:21)
[2021-08-19] MEDS: HEPARIN DRIP/D5W 100UNITS/ML 250 ML IV SCH ×2 (03:46→21:40)
[2021-08-19 04:50] LABS: Basophils # (auto) 0.1 10 ^3/uL (0-0.2); Basophils % (auto) 0.2 % (0.0-2.0); Eosinophils # (auto) 0.1 10 ^3/uL (0-0.8); Eosinophils % (auto) 0.4 % (0.0-7.0); Hematocrit 34.6 % (41.0-53.0); Hemoglobin 11.7 g/dL (13.5-17.5); Lymphocytes # (auto) 1.3 10 ^3/uL (0.4-5.4); Lymphocytes % (auto) 5.4 % (10.0-50.0); Mean Corpuscular Hemoglobin 30.7 pg (28.0-32.0); Mean Corpuscular Hgb Conc. 33.9 g/dL (32.0-36.0); Mean Corpuscular Volume 90.5 fL (80.0-100.0); Monocytes # (auto) 1.9 10 ^3/uL (0-1.3); Monocytes % (auto) 8.1 % (0.0-12.0); Neutrophils # (auto) 19.9 10 ^3/uL (1.6-8.6); Neutrophils % (auto) 85.9 % (37.0-80.0); Red Blood Cells 3.82 10^6/uL (4.5-5.90); Red Cell Distribution Width 14.1 % (11.8-14.3); White Blood Cell 23.2 10^3/uL (4.4-10.8)
[2021-08-19 05:02] LABS: BUN/Creatinine Ratio 42.2; Calcium 8.2 mg/dL (8.5-10.1); Potassium 4.4 mmol/L (3.5-5.1)
[2021-08-19] MEDS: PROPOFOL 100 ML IV SCH ×2 (05:06→09:00)
[2021-08-19] MEDS: InsuLIN REG 1unit/0.01ml Soln (100units/ml) SC SCH ×3 (05:34→18:00)
[2021-08-19] MEDS: ACCU-CHEK COMFORT CURVE STRIP VI SCH ×3 (05:35→18:16)
[2021-08-19] MEDS: PANTOPRAZOLE 40 MG/10 ML VIAL INJ IV SCH ×2 (09:32→22:00)
[2021-08-19] MEDS: SODIUM CHLOR 0.9% PF (SALINE LOCK) 10ML VIAL/SYR IV SCH ×2 (09:32→22:00)
[2021-08-19] MEDS: methylPREDNISolone SOD SUCC 40 MG/ML VL IV SCH ×2 (09:32→22:00)
[2021-08-19] MEDS: fentaNYL Drip 2500mCg/250mlNS 250 ML IV SCH ×2 (11:16→23:38)
[2021-08-19] MEDS: ATORVASTATIN 20 MG TAB PO SCH (22:00)
[2021-08-19] MEDS: ETRAVIRINE GT SCH (22:00)
[2021-08-19] MEDS: ISENTRESS 400 MG GT SCH (22:00)
[2021-08-20] VITALS (101 sets, daily range): BP systolic 97–156; BP diastolic 39–81
[2021-08-20] MEDS: PROPOFOL 100 ML IV SCH ×4 (00:18→22:16)
[2021-08-20] MEDS: MIDAZOLAM DRIP 50 mg/50mL 50 ML IV SCH ×8 (00:18→20:59)
[2021-08-20] MEDS: InsuLIN REG 1unit/0.01ml Soln (100units/ml) SC SCH ×4 (00:48→17:50)
[2021-08-20] MEDS: PIPERACILLIN-TAZOB 3.375GM 100 ML IV SCH ×4 (00:50→17:40)
[2021-08-20 05:01] LABS: INR 1.18 (0.9-1.15)
[2021-08-20 05:18] LABS: Partial Thromboplastin Time 75.3 sec (23.6-33.0)
[2021-08-20] MEDS: ACCU-CHEK COMFORT CURVE STRIP VI SCH ×4 (06:30→17:50)
[2021-08-20] MEDS: PANTOPRAZOLE 40 MG/10 ML VIAL INJ IV SCH ×2 (09:47→21:55)
[2021-08-20] MEDS: SODIUM CHLOR 0.9% PF (SALINE LOCK) 10ML VIAL/SYR IV SCH ×2 (09:48→21:56)
[2021-08-20] MEDS: methylPREDNISolone SOD SUCC 40 MG/ML VL IV SCH ×2 (09:48→21:56)
[2021-08-20] MEDS: ETRAVIRINE GT SCH ×2 (09:49→21:57)
[2021-08-20] MEDS: ISENTRESS 400 MG GT SCH ×2 (09:50→21:57)
[2021-08-20] MEDS: PREZCOBIX GT SCH (09:51)
[2021-08-20] MEDS: fentaNYL Drip 2500mCg/250mlNS 250 ML IV SCH ×2 (10:38→23:24)
[2021-08-20 13:45] LABS: INR 1.16 (0.9-1.15); Partial Thromboplastin Time 62.1 sec (23.6-33.0)
[2021-08-20] MEDS: HEPARIN DRIP/D5W 100UNITS/ML 250 ML IV SCH (16:47)
[2021-08-20 18:16] LABS: INR 1.16 (0.9-1.15)
[2021-08-20 18:19] LABS: Partial Thromboplastin Time 75.8 sec (23.6-33.0)
[2021-08-20] MEDS: ATORVASTATIN 20 MG TAB PO SCH (21:56)
[2021-08-21] VITALS (74 sets, daily range): BP systolic 114–185; BP diastolic 39–91
[2021-08-21] MEDS: InsuLIN REG 1unit/0.01ml Soln (100units/ml) SC SCH ×5 (00:03→23:57)
[2021-08-21] MEDS: ACCU-CHEK COMFORT CURVE STRIP VI SCH ×5 (00:04→23:57)
[2021-08-21] MEDS: fentaNYL Drip 2500mCg/250mlNS 250 ML IV SCH ×2 (00:04→18:57)
[2021-08-21] MEDS: PIPERACILLIN-TAZOB 3.375GM 100 ML IV SCH ×5 (00:05→23:57)
[2021-08-21 01:18] LABS: INR 1.19 (0.9-1.15); Partial Thromboplastin Time 56.9 sec (23.6-33.0)
[2021-08-21] MEDS: MIDAZOLAM DRIP 50 mg/50mL 50 ML IV SCH ×6 (01:19→16:30)
[2021-08-21] MEDS: PROPOFOL 100 ML IV SCH (05:40)
[2021-08-21 07:04] LABS: Basophils # (auto) 0 10 ^3/uL (0-0.2); Basophils % (auto) 0.2 % (0.0-2.0); Eosinophils # (auto) 0.1 10 ^3/uL (0-0.8); Eosinophils % (auto) 0.5 % (0.0-7.0); Hematocrit 30.6 % (41.0-53.0); Hemoglobin 10.2 g/dL (13.5-17.5); Lymphocytes # (auto) 0.9 10 ^3/uL (0.4-5.4); Lymphocytes % (auto) 4.4 % (10.0-50.0); Mean Corpuscular Hemoglobin 30.4 pg (28.0-32.0); Mean Corpuscular Hgb Conc. 33.2 g/dL (32.0-36.0); Mean Corpuscular Volume 91.7 fL (80.0-100.0); Monocytes # (auto) 1.1 10 ^3/uL (0-1.3); Monocytes % (auto) 5.2 % (0.0-12.0); Neutrophils # (auto) 18.8 10 ^3/uL (1.6-8.6); Neutrophils % (auto) 89.7 % (37.0-80.0); Nucleated Red Blood Cells % 0.1 %; Red Blood Cells 3.34 10^6/uL (4.5-5.90); Red Cell Distribution Width 14.8 % (11.8-14.3)
[2021-08-21 07:19] LABS: BUN/Creatinine Ratio 38.4; Calcium 7.9 mg/dL (8.5-10.1); Potassium 4.9 mmol/L (3.5-5.1)
[2021-08-21 07:24] LABS: INR 1.21 (0.9-1.15); Partial Thromboplastin Time 69.1 sec (23.6-33.0)
[2021-08-21] MEDS: SODIUM CHLOR 0.9% PF (SALINE LOCK) 10ML VIAL/SYR IV SCH ×2 (09:35→21:54)
[2021-08-21] MEDS: PANTOPRAZOLE 40 MG/10 ML VIAL INJ IV SCH ×2 (09:35→21:53)
[2021-08-21] MEDS: methylPREDNISolone SOD SUCC 40 MG/ML VL IV SCH (09:35)
[2021-08-21] MEDS: PREZCOBIX GT SCH (09:36)
[2021-08-21] MEDS: ETRAVIRINE GT SCH ×2 (09:37→21:54)
[2021-08-21] MEDS: ISENTRESS 400 MG GT SCH ×2 (09:37→21:55)
[2021-08-21] MEDS: HEPARIN DRIP/D5W 100UNITS/ML 250 ML IV SCH (10:31)
[2021-08-21 13:35] LABS: INR 1.17 (0.9-1.15)
[2021-08-21] MEDS: Jevity 1.2 Cal/Fiber 1 Liter GT SCH (18:57)
[2021-08-21 19:22] LABS: INR 1.18 (0.9-1.15); Partial Thromboplastin Time 58.9 sec (23.6-33.0)
[2021-08-21] MEDS: ATORVASTATIN 20 MG TAB PO SCH (21:53)
[2021-08-21] MEDS: hydrALAZINE HCL 20 MG/ML VL IV PRN (22:56)
[2021-08-22] VITALS (98 sets, daily range): BP systolic 93–170; BP diastolic 42–85
[2021-08-22] MEDS: HEPARIN DRIP/D5W 100UNITS/ML 250 ML IV SCH ×2 (01:40→16:48)
[2021-08-22 04:07] LABS: Hematocrit 35.8 % (41.0-53.0); Hemoglobin 11.8 g/dL (13.5-17.5); Mean Corpuscular Hemoglobin 30.3 pg (28.0-32.0); Mean Corpuscular Hgb Conc. 33.1 g/dL (32.0-36.0); Mean Corpuscular Volume 91.5 fL (80.0-100.0); Red Blood Cells 3.91 10^6/uL (4.5-5.90); Red Cell Distribution Width 15.1 % (11.8-14.3)
[2021-08-22 04:56] LABS: Basophils % (manual) 0 (0.0-2.0); Blast Cells 0; Eosinophils % (manual) 0 (0-7); Metamyelocytes % 0; Myelocytes % 0; Promyelocytes % 0; Reactive Lymphocytes 0
[2021-08-22 05:11] LABS: INR 1.18 (0.9-1.15); Partial Thromboplastin Time 39.6 sec (23.6-33.0)
[2021-08-22 05:12] LABS: Albumin 2.6 g/dL (3.4-5.0); Calcium 7.9 mg/dL (8.5-10.1); Potassium 4.8 mmol/L (3.5-5.1)
[2021-08-22 05:16] LABS: BUN/Creatinine Ratio 39.5; Bilirubin, Total 1.2 mg/dL (0.2-1.0); Total Protein 6.1 g/dL (6.4-8.2)
[2021-08-22] MEDS: ACCU-CHEK COMFORT CURVE STRIP VI SCH ×3 (06:06→17:29)
[2021-08-22] MEDS: PIPERACILLIN-TAZOB 3.375GM 100 ML IV SCH ×3 (06:06→17:39)
[2021-08-22] MEDS: InsuLIN REG 1unit/0.01ml Soln (100units/ml) SC SCH ×3 (06:07→17:37)
[2021-08-22 07:57] LABS: Band Neutrophils % (manual) 7; Lymphocytes % (manual) 7 (10.0-50.0); Monocytes % (manual) 9 (0-12)
[2021-08-22] MEDS: MIDAZOLAM DRIP 50 mg/50mL 50 ML IV SCH ×3 (09:10→15:50)
[2021-08-22] MEDS: PANTOPRAZOLE 40 MG/10 ML VIAL INJ IV SCH ×2 (09:38→22:02)
[2021-08-22] MEDS: methylPREDNISolone SOD SUCC 40 MG/ML VL IV SCH (09:39)
[2021-08-22] MEDS: SODIUM CHLOR 0.9% PF (SALINE LOCK) 10ML VIAL/SYR IV SCH ×2 (09:39→22:02)
[2021-08-22] MEDS: PREZCOBIX GT SCH (09:40)
[2021-08-22] MEDS: ISENTRESS 400 MG GT SCH ×2 (09:40→22:03)
[2021-08-22] MEDS: ETRAVIRINE GT SCH ×2 (11:46→22:03)
[2021-08-22 12:18] LABS: Hematocrit 28.4 % (41.0-53.0); Mean Corpuscular Volume 91.5 fL (80.0-100.0); Red Blood Cells 3.11 10^6/uL (4.5-5.90); Red Cell Distribution Width 15.1 % (11.8-14.3); White Blood Cell 19.8 10^3/uL (4.4-10.8)
[2021-08-22 12:34] LABS: Basophils % (manual) 0 (0.0-2.0); Blast Cells 0; Eosinophils % (manual) 0 (0-7); Metamyelocytes % 0; Myelocytes % 0; Promyelocytes % 0; Reactive Lymphocytes 0
[2021-08-22] MEDS: PROPOFOL 100 ML IV SCH ×2 (14:22→23:38)
[2021-08-22 14:38] LABS: INR 1.19 (0.9-1.15)
[2021-08-22 14:48] LABS: Partial Thromboplastin Time 83.1 sec (23.6-33.0)
[2021-08-22] MEDS ORDERED: FUROSEMIDE 40 MG/4 ML VIAL IV ONE (16:30)
[2021-08-22] MEDS: Jevity 1.2 Cal/Fiber 1 Liter GT SCH (17:24)
[2021-08-22 17:26] LABS: Band Neutrophils % (manual) 2; Lymphocytes % (manual) 5 (10.0-50.0); Monocytes % (manual) 9 (0-12)
[2021-08-22] MEDS: ATORVASTATIN 20 MG TAB PO SCH (22:02)
[2021-08-22 22:22] LABS: INR 1.2 (0.9-1.15)
[2021-08-23] VITALS (102 sets, daily range): BP systolic 109–177; BP diastolic 56–88
[2021-08-23] MEDS: PIPERACILLIN-TAZOB 3.375GM 100 ML IV SCH ×4 (00:58→17:45)
[2021-08-23] MEDS: ACCU-CHEK COMFORT CURVE STRIP VI SCH ×4 (00:59→18:42)
[2021-08-23] MEDS: InsuLIN REG 1unit/0.01ml Soln (100units/ml) SC SCH ×4 (00:59→18:42)
[2021-08-23 04:35] LABS: Hematocrit 30.6 % (41.0-53.0); Hemoglobin 10.2 g/dL (13.5-17.5); Mean Corpuscular Hemoglobin 30.3 pg (28.0-32.0); Mean Corpuscular Hgb Conc. 33.2 g/dL (32.0-36.0); Mean Corpuscular Volume 91.2 fL (80.0-100.0); Red Blood Cells 3.36 10^6/uL (4.5-5.90); Red Cell Distribution Width 15.6 % (11.8-14.3); White Blood Cell 19.1 10^3/uL (4.4-10.8)
[2021-08-23 04:44] LABS: INR 1.19 (0.9-1.15); Partial Thromboplastin Time 55.5 sec (23.6-33.0)
[2021-08-23 04:59] LABS: Albumin 2.4 g/dL (3.4-5.0); BUN/Creatinine Ratio 42.3; Bilirubin, Total 1.2 mg/dL (0.2-1.0); Calcium 7.8 mg/dL (8.5-10.1); Total Protein 5.9 g/dL (6.4-8.2)
[2021-08-23 05:04] LABS: Band Neutrophils % (manual) 0; Basophils % (manual) 0 (0.0-2.0); Eosinophils % (manual) 0 (0-7); Metamyelocytes % 0; Myelocytes % 0; Promyelocytes % 0; Reactive Lymphocytes 0
[2021-08-23 05:05] LABS: Blast Cells 0
[2021-08-23 07:43] LABS: Lymphocytes % (manual) 25 (10.0-50.0); Monocytes % (manual) 1 (0-12)
[2021-08-23] MEDS: HEPARIN DRIP/D5W 100UNITS/ML 250 ML IV SCH (08:00)
[2021-08-23] MEDS: MIDAZOLAM DRIP 50 mg/50mL 50 ML IV SCH ×2 (09:19→11:04)
[2021-08-23] MEDS: methylPREDNISolone SOD SUCC 40 MG/ML VL IV SCH (09:48)
[2021-08-23] MEDS: PANTOPRAZOLE 40 MG/10 ML VIAL INJ IV SCH ×2 (09:48→22:27)
[2021-08-23] MEDS: SODIUM CHLOR 0.9% PF (SALINE LOCK) 10ML VIAL/SYR IV SCH ×2 (09:52→22:27)
[2021-08-23] MEDS: ETRAVIRINE GT SCH ×3 (09:53→22:26)
[2021-08-23] MEDS: PREZCOBIX GT SCH ×3 (09:55→18:46)
[2021-08-23] MEDS: ISENTRESS 400 MG GT SCH ×3 (09:55→22:27)
[2021-08-23 11:58] LABS: INR 1.19 (0.9-1.15); Partial Thromboplastin Time 65.1 sec (23.6-33.0)
[2021-08-23] MEDS: LABETALOL HCL 5 MG/ML 4ML SYRINGE IV PRN (14:58)
[2021-08-23] MEDS: PROPOFOL 100 ML IV SCH ×2 (15:06→20:00)
[2021-08-23] MEDS: fentaNYL Drip 2500mCg/250mlNS 250 ML IV SCH (18:41)
[2021-08-23 19:01] LABS: INR 1.21 (0.9-1.15); Partial Thromboplastin Time 67.3 sec (23.6-33.0)
[2021-08-23] MEDS: Jevity 1.2 Cal/Fiber 1 Liter GT SCH (20:00)
[2021-08-23] MEDS: ATORVASTATIN 20 MG TAB PO SCH (22:27)
[2021-08-24] VITALS (96 sets, daily range): BP systolic 106–211; BP diastolic 34–112
[2021-08-24] MEDS: PIPERACILLIN-TAZOB 3.375GM 100 ML IV SCH ×4 (01:47→17:47)
[2021-08-24] MEDS: ACCU-CHEK COMFORT CURVE STRIP VI SCH ×4 (01:47→18:31)
[2021-08-24] MEDS: InsuLIN REG 1unit/0.01ml Soln (100units/ml) SC SCH ×4 (06:00→18:31)
[2021-08-24 06:27] LABS: Basophils # (auto) 0.1 10 ^3/uL (0-0.2); Basophils % (auto) 0.9 % (0.0-2.0); Eosinophils # (auto) 0 10 ^3/uL (0-0.8); Eosinophils % (auto) 0.1 % (0.0-7.0); Hematocrit 26.2 % (41.0-53.0); Hemoglobin 9.1 g/dL (13.5-17.5); Lymphocytes # (auto) 1.1 10 ^3/uL (0.4-5.4); Lymphocytes % (auto) 7.4 % (10.0-50.0); Mean Corpuscular Hemoglobin 31.7 pg (28.0-32.0); Mean Corpuscular Hgb Conc. 34.6 g/dL (32.0-36.0); Mean Corpuscular Volume 91.6 fL (80.0-100.0); Monocytes # (auto) 1.9 10 ^3/uL (0-1.3); Monocytes % (auto) 12.4 % (0.0-12.0); Neutrophils # (auto) 12.1 10 ^3/uL (1.6-8.6); Neutrophils % (auto) 79.2 % (37.0-80.0); Nucleated Red Blood Cells % 0.1 %; Red Blood Cells 2.86 10^6/uL (4.5-5.90); Red Cell Distribution Width 15.8 % (11.8-14.3); White Blood Cell 15.3 10^3/uL (4.4-10.8)
[2021-08-24 07:20] LABS: INR 1.24 (0.9-1.15)
[2021-08-24 07:36] LABS: Partial Thromboplastin Time 115.4 sec (23.6-33.0)
[2021-08-24] MEDS: LABETALOL HCL 5 MG/ML 4ML SYRINGE IV PRN (08:18)
[2021-08-24] MEDS: methylPREDNISolone SOD SUCC 40 MG/ML VL IV SCH (10:20)
[2021-08-24] MEDS: PANTOPRAZOLE 40 MG/10 ML VIAL INJ IV SCH ×2 (10:20→22:08)
[2021-08-24] MEDS: SODIUM CHLOR 0.9% PF (SALINE LOCK) 10ML VIAL/SYR IV SCH ×2 (10:21→22:27)
[2021-08-24] MEDS: PROPOFOL 100 ML IV SCH ×3 (11:42→19:50)
[2021-08-24] MEDS: ETRAVIRINE GT SCH ×2 (12:27→22:10)
[2021-08-24] MEDS: ISENTRESS 400 MG GT SCH ×2 (12:28→22:28)
[2021-08-24] MEDS: PREZCOBIX GT SCH (12:28)
[2021-08-24] MEDS ORDERED: HYDROcodone-ACET 10/325MG TAB PO SCH (14:00)
[2021-08-24 15:16] LABS: INR 1.21 (0.9-1.15); Partial Thromboplastin Time 46.1 sec (23.6-33.0)
[2021-08-24] MEDS ORDERED: HYDROcodone-ACET 10/325MG TAB PO PRN (16:30)
[2021-08-24] MEDS: HEPARIN DRIP/D5W 100UNITS/ML 250 ML IV SCH ×2 (16:57)
[2021-08-24] MEDS ORDERED: ACETAMINOPHEN 650 MG RECT SUPP PR PRN (17:00)
[2021-08-24] MEDS ORDERED: METOPROLOL TARTRATE 25 MG TAB NG SCH (22:00)
[2021-08-24] MEDS: ATORVASTATIN 20 MG TAB PO SCH (22:08)
[2021-08-24] MEDS: fentaNYL Drip 2500mCg/250mlNS 250 ML IV SCH (22:26)
[2021-08-24 23:02] LABS: INR 1.16 (0.9-1.15)
[2021-08-25] VITALS (102 sets, daily range): BP systolic 130–224; BP diastolic 35–92
[2021-08-25] MEDS: ACCU-CHEK COMFORT CURVE STRIP VI SCH ×5 (00:13→23:43)
[2021-08-25] MEDS: PIPERACILLIN-TAZOB 3.375GM 100 ML IV SCH ×5 (00:13→23:42)
[2021-08-25] MEDS: InsuLIN REG 1unit/0.01ml Soln (100units/ml) SC SCH ×5 (00:20→23:46)
[2021-08-25] MEDS: hydrALAZINE HCL 20 MG/ML VL IV PRN ×2 (00:50→12:56)
[2021-08-25] MEDS: LABETALOL HCL 5 MG/ML 4ML SYRINGE IV PRN (03:36)
[2021-08-25] MEDS: PROPOFOL 100 ML IV SCH (04:13)
[2021-08-25 04:47] LABS: Basophils # (auto) 0.1 10 ^3/uL (0-0.2); Basophils % (auto) 0.7 % (0.0-2.0); Eosinophils # (auto) 0 10 ^3/uL (0-0.8); Hematocrit 27.1 % (41.0-53.0); Hemoglobin 9.3 g/dL (13.5-17.5); Lymphocytes # (auto) 0.9 10 ^3/uL (0.4-5.4); Lymphocytes % (auto) 4.3 % (10.0-50.0); Mean Corpuscular Hemoglobin 31.6 pg (28.0-32.0); Mean Corpuscular Hgb Conc. 34.5 g/dL (32.0-36.0); Mean Corpuscular Volume 91.8 fL (80.0-100.0); Monocytes # (auto) 1.9 10 ^3/uL (0-1.3); Monocytes % (auto) 9.5 % (0.0-12.0); Neutrophils # (auto) 17.5 10 ^3/uL (1.6-8.6); Neutrophils % (auto) 85.5 % (37.0-80.0); Nucleated Red Blood Cells % 0.1 %; Red Blood Cells 2.95 10^6/uL (4.5-5.90); Red Cell Distribution Width 15.7 % (11.8-14.3); White Blood Cell 20.5 10^3/uL (4.4-10.8)
[2021-08-25 05:02] LABS: Calcium 7.7 mg/dL (8.5-10.1); Potassium 4.7 mmol/L (3.5-5.1)
[2021-08-25 05:05] LABS: Albumin 2.5 g/dL (3.4-5.0); BUN/Creatinine Ratio 37.8
[2021-08-25 05:08] LABS: Bilirubin, Total 1.4 mg/dL (0.2-1.0); Total Protein 5.9 g/dL (6.4-8.2)
[2021-08-25 05:08] LABS: INR 1.21 (0.9-1.15)
[2021-08-25 05:30] LABS: Partial Thromboplastin Time 81.5 sec (23.6-33.0)
[2021-08-25] MEDS ORDERED: amLODIPine BESYLATE 5 MG TAB PO SCH (10:00)
[2021-08-25] MEDS: fentaNYL Drip 2500mCg/250mlNS 250 ML IV SCH (10:54)
[2021-08-25] MEDS ORDERED: amLODIPine BESYLATE 5 MG TAB NG SCH (11:00)
[2021-08-25] MEDS: ETRAVIRINE GT SCH ×2 (11:30→21:53)
[2021-08-25] MEDS: ISENTRESS 400 MG GT SCH ×2 (11:31→21:53)
[2021-08-25] MEDS: PREZCOBIX GT SCH (11:31)
[2021-08-25] MEDS: PANTOPRAZOLE 40 MG/10 ML VIAL INJ IV SCH ×2 (11:32→21:52)
[2021-08-25] MEDS: methylPREDNISolone SOD SUCC 40 MG/ML VL IV SCH (11:32)
[2021-08-25] MEDS: SODIUM CHLOR 0.9% PF (SALINE LOCK) 10ML VIAL/SYR IV SCH ×2 (11:33→21:52)
[2021-08-25] MEDS: METOPROLOL TARTRATE 50 MG TAB NG SCH ×2 (11:34→21:52)
[2021-08-25] MEDS: HEPARIN DRIP/D5W 100UNITS/ML 250 ML IV SCH (15:00)
[2021-08-25] MEDS: ATORVASTATIN 20 MG TAB PO SCH (21:52)
[2021-08-25 22:31] LABS: INR 1.19 (0.9-1.15)
[2021-08-25 22:34] LABS: Partial Thromboplastin Time 86.1 sec (23.6-33.0)
[2021-08-26] VITALS (89 sets, daily range): BP systolic 120–180; BP diastolic 62–85
[2021-08-26] MEDS: PROPOFOL 100 ML IV SCH (03:59)
[2021-08-26] MEDS: HEPARIN DRIP/D5W 100UNITS/ML 250 ML IV SCH ×2 (04:00→18:04)
[2021-08-26] MEDS: PIPERACILLIN-TAZOB 3.375GM 100 ML IV SCH ×2 (05:23→11:41)
[2021-08-26] MEDS: InsuLIN REG 1unit/0.01ml Soln (100units/ml) SC SCH ×3 (05:24→18:21)
[2021-08-26] MEDS: ACCU-CHEK COMFORT CURVE STRIP VI SCH ×3 (05:24→18:15)
[2021-08-26 06:14] LABS: INR 1.14 (0.9-1.15); Partial Thromboplastin Time 24.5 sec (23.6-33.0)
[2021-08-26 08:35] LABS: Basophils # (auto) 0.1 10 ^3/uL (0-0.2); Basophils % (auto) 0.5 % (0.0-2.0); Eosinophils # (auto) 0 10 ^3/uL (0-0.8); Hematocrit 28.2 % (41.0-53.0); Hemoglobin 9.5 g/dL (13.5-17.5); Lymphocytes # (auto) 1.1 10 ^3/uL (0.4-5.4); Lymphocytes % (auto) 5.3 % (10.0-50.0); Mean Corpuscular Hemoglobin 31.3 pg (28.0-32.0); Mean Corpuscular Hgb Conc. 33.6 g/dL (32.0-36.0); Mean Corpuscular Volume 93.1 fL (80.0-100.0); Monocytes # (auto) 2.3 10 ^3/uL (0-1.3); Monocytes % (auto) 11.4 % (0.0-12.0); Neutrophils # (auto) 16.7 10 ^3/uL (1.6-8.6); Neutrophils % (auto) 82.8 % (37.0-80.0); Nucleated Red Blood Cells % 0.2 %; Red Blood Cells 3.03 10^6/uL (4.5-5.90); Red Cell Distribution Width 16.6 % (11.8-14.3); White Blood Cell 20.2 10^3/uL (4.4-10.8)
[2021-08-26 08:48] LABS: Albumin 2.6 g/dL (3.4-5.0); Calcium 8.1 mg/dL (8.5-10.1); INR 1.17 (0.9-1.15); Partial Thromboplastin Time 29.3 sec (23.6-33.0); Potassium 4.1 mmol/L (3.5-5.1)
[2021-08-26 08:52] LABS: BUN/Creatinine Ratio 38.1; Bilirubin, Total 1.6 mg/dL (0.2-1.0)
[2021-08-26] MEDS: ISENTRESS 400 MG GT SCH ×2 (11:26→21:05)
[2021-08-26] MEDS: ETRAVIRINE GT SCH ×2 (11:27→21:06)
[2021-08-26] MEDS: PANTOPRAZOLE 40 MG/10 ML VIAL INJ IV SCH ×2 (11:27→21:04)
[2021-08-26] MEDS: PREZCOBIX GT SCH (11:27)
[2021-08-26] MEDS: METOPROLOL TARTRATE 50 MG TAB NG SCH ×2 (11:28→21:04)
[2021-08-26] MEDS: SODIUM CHLOR 0.9% PF (SALINE LOCK) 10ML VIAL/SYR IV SCH ×2 (11:28→21:08)
[2021-08-26] MEDS: methylPREDNISolone SOD SUCC 40 MG/ML VL IV SCH (11:28)
[2021-08-26] MEDS: fentaNYL Drip 2500mCg/250mlNS 250 ML IV SCH (11:46)
[2021-08-26 16:47] LABS: INR 1.22 (0.9-1.15); Partial Thromboplastin Time 48.6 sec (23.6-33.0)
[2021-08-26] MEDS: FUROSEMIDE 40 MG/4 ML VIAL IV SCH (18:15)
[2021-08-26] MEDS: POTASSIUM EFFERVESENT TAB 25 MEQ GT SCH (21:03)
[2021-08-26] MEDS: ATORVASTATIN 20 MG TAB PO SCH (21:03)
[2021-08-27] VITALS (91 sets, daily range): BP systolic 102–189; BP diastolic 47–90
[2021-08-27] MEDS: ACCU-CHEK COMFORT CURVE STRIP VI SCH ×4 (00:12→18:15)
[2021-08-27] MEDS: InsuLIN REG 1unit/0.01ml Soln (100units/ml) SC SCH ×4 (00:13→18:00)
[2021-08-27 00:39] LABS: INR 1.25 (0.9-1.15)
[2021-08-27 00:41] LABS: Partial Thromboplastin Time 95.6 sec (23.6-33.0)
[2021-08-27 04:46] LABS: Basophils # (auto) 0.2 10 ^3/uL (0-0.2); Basophils % (auto) 1.2 % (0.0-2.0); Eosinophils # (auto) 0 10 ^3/uL (0-0.8); Hematocrit 27.7 % (41.0-53.0); Hemoglobin 9.4 g/dL (13.5-17.5); Mean Corpuscular Hemoglobin 31.5 pg (28.0-32.0); Mean Corpuscular Hgb Conc. 33.8 g/dL (32.0-36.0); Mean Corpuscular Volume 93.1 fL (80.0-100.0); Monocytes % (auto) 6.4 % (0.0-12.0); Neutrophils # (auto) 13.9 10 ^3/uL (1.6-8.6); Neutrophils % (auto) 86.4 % (37.0-80.0); Nucleated Red Blood Cells % 0.1 %; Red Blood Cells 2.98 10^6/uL (4.5-5.90); Red Cell Distribution Width 16.9 % (11.8-14.3); White Blood Cell 16.1 10^3/uL (4.4-10.8)
[2021-08-27 04:55] LABS: Calcium 8.2 mg/dL (8.5-10.1); Potassium 4.4 mmol/L (3.5-5.1)
[2021-08-27 04:57] LABS: BUN/Creatinine Ratio 46.2
[2021-08-27] MEDS: FUROSEMIDE 40 MG/4 ML VIAL IV SCH ×2 (05:57→18:14)
[2021-08-27 06:47] LABS: INR 1.24 (0.9-1.15)
[2021-08-27] MEDS ORDERED: ALPRAZolam 0.5 MG TAB PO ONE (09:15)
[2021-08-27] MEDS ORDERED: amLODIPine BESYLATE 5 MG TAB PO ONE ×2 (09:15→09:30)
[2021-08-27] MEDS: METOPROLOL TARTRATE 50 MG TAB NG SCH ×2 (09:56→22:00)
[2021-08-27] MEDS: ETRAVIRINE GT SCH ×2 (09:56→22:31)
[2021-08-27] MEDS: ISENTRESS 400 MG GT SCH ×2 (09:56→22:31)
[2021-08-27] MEDS: methylPREDNISolone SOD SUCC 40 MG/ML VL IV SCH (09:56)
[2021-08-27] MEDS: PANTOPRAZOLE 40 MG/10 ML VIAL INJ IV SCH ×2 (09:56→22:30)
[2021-08-27] MEDS: PREZCOBIX GT SCH (09:56)
[2021-08-27] MEDS: SODIUM CHLOR 0.9% PF (SALINE LOCK) 10ML VIAL/SYR IV SCH ×2 (09:56→22:00)
[2021-08-27] MEDS: POTASSIUM EFFERVESENT TAB 25 MEQ GT SCH ×2 (09:57→22:29)
[2021-08-27 13:07] LABS: INR 1.23 (0.9-1.15); Partial Thromboplastin Time 59.8 sec (23.6-33.0)
[2021-08-27] MEDS: ALPRAZolam 0.5 MG TAB PO SCH ×2 (14:00→22:29)
[2021-08-27 19:02] LABS: INR 1.23 (0.9-1.15)
[2021-08-27 19:05] LABS: Partial Thromboplastin Time 71.3 sec (23.6-33.0)
[2021-08-27] MEDS: fentaNYL Drip 2500mCg/250mlNS 250 ML IV SCH (22:15)
[2021-08-27] MEDS: ATORVASTATIN 20 MG TAB PO SCH (22:30)
[2021-08-28] VITALS (102 sets, daily range): BP systolic 106–194; BP diastolic 65–105
[2021-08-28] MEDS: HEPARIN DRIP/D5W 100UNITS/ML 250 ML IV SCH ×2 (01:01→13:48)
[2021-08-28 04:55] LABS: Potassium 4.8 mmol/L (3.5-5.1)
[2021-08-28 05:02] LABS: Albumin 1.3 g/dL (3.4-5.0); BUN/Creatinine Ratio 57.9; Calcium 6.9 mg/dL (8.5-10.1)
[2021-08-28 05:04] LABS: Bilirubin, Total 1.1 mg/dL (0.2-1.0); Total Protein 2.9 g/dL (6.4-8.2)
[2021-08-28] MEDS: InsuLIN REG 1unit/0.01ml Soln (100units/ml) SC SCH ×5 (05:56→23:42)
[2021-08-28] MEDS: FUROSEMIDE 40 MG/4 ML VIAL IV SCH ×2 (06:03→17:52)
[2021-08-28] MEDS: ACCU-CHEK COMFORT CURVE STRIP VI SCH ×5 (06:03→23:41)
[2021-08-28] MEDS: ALPRAZolam 0.5 MG TAB PO SCH ×3 (06:05→21:57)
[2021-08-28] MEDS: PROPOFOL 100 ML IV SCH (08:38)
[2021-08-28] MEDS: PREZCOBIX GT SCH ×2 (10:00→17:26)
[2021-08-28] MEDS: ISENTRESS 400 MG GT SCH ×3 (10:00→21:58)
[2021-08-28] MEDS: ETRAVIRINE GT SCH ×3 (10:00→21:58)
[2021-08-28] MEDS: POTASSIUM EFFERVESENT TAB 25 MEQ GT SCH ×2 (10:00→22:00)
[2021-08-28] MEDS: PANTOPRAZOLE 40 MG/10 ML VIAL INJ IV SCH ×2 (10:25→21:57)
[2021-08-28] MEDS: methylPREDNISolone SOD SUCC 40 MG/ML VL IV SCH (10:25)
[2021-08-28] MEDS: METOPROLOL TARTRATE 50 MG TAB NG SCH ×2 (10:26→21:57)
[2021-08-28] MEDS: SODIUM CHLOR 0.9% PF (SALINE LOCK) 10ML VIAL/SYR IV SCH ×2 (10:27→21:58)
[2021-08-28] MEDS: amLODIPine BESYLATE 5 MG TAB PO SCH (10:27)
[2021-08-28 11:13] LABS: Basophils # (auto) 0.1 10 ^3/uL (0-0.2); Basophils % (auto) 0.3 % (0.0-2.0); Eosinophils # (auto) 0 10 ^3/uL (0-0.8); Lymphocytes # (auto) 0.8 10 ^3/uL (0.4-5.4); Lymphocytes % (auto) 4.5 % (10.0-50.0); Mean Corpuscular Hemoglobin 30.7 pg (28.0-32.0); Mean Corpuscular Hgb Conc. 33.3 g/dL (32.0-36.0); Mean Corpuscular Volume 92.2 fL (80.0-100.0); Monocytes # (auto) 1.9 10 ^3/uL (0-1.3); Monocytes % (auto) 10.2 % (0.0-12.0); Neutrophils # (auto) 15.8 10 ^3/uL (1.6-8.6); Nucleated Red Blood Cells % 0.1 %; Red Blood Cells 3.25 10^6/uL (4.5-5.90); Red Cell Distribution Width 17.4 % (11.8-14.3); White Blood Cell 18.6 10^3/uL (4.4-10.8)
[2021-08-28] MEDS: ATORVASTATIN 20 MG TAB PO SCH (21:57)
[2021-08-28] MEDS: fentaNYL Drip 2500mCg/250mlNS 250 ML IV SCH (22:15)
[2021-08-29] VITALS (92 sets, daily range): BP systolic 104–151; BP diastolic 27–97
[2021-08-29] MEDS: HEPARIN DRIP/D5W 100UNITS/ML 250 ML IV SCH ×2 (01:45→11:17)
[2021-08-29 04:25] LABS: Basophils # (auto) 0.1 10 ^3/uL (0-0.2); Basophils % (auto) 0.8 % (0.0-2.0); Eosinophils # (auto) 0 10 ^3/uL (0-0.8); Hematocrit 24.8 % (41.0-53.0); Hemoglobin 8.6 g/dL (13.5-17.5); Lymphocytes # (auto) 0.6 10 ^3/uL (0.4-5.4); Lymphocytes % (auto) 5.5 % (10.0-50.0); Mean Corpuscular Hgb Conc. 34.7 g/dL (32.0-36.0); Mean Corpuscular Volume 92.2 fL (80.0-100.0); Monocytes # (auto) 0.8 10 ^3/uL (0-1.3); Neutrophils # (auto) 8.9 10 ^3/uL (1.6-8.6); Neutrophils % (auto) 85.7 % (37.0-80.0); Nucleated Red Blood Cells % 0.4 %; Red Blood Cells 2.69 10^6/uL (4.5-5.90); Red Cell Distribution Width 17.3 % (11.8-14.3); White Blood Cell 10.4 10^3/uL (4.4-10.8)
[2021-08-29 04:43] LABS: BUN/Creatinine Ratio 50.8; Calcium 7.9 mg/dL (8.5-10.1); Potassium 4.3 mmol/L (3.5-5.1)
[2021-08-29] MEDS: FUROSEMIDE 40 MG/4 ML VIAL IV SCH ×2 (05:55→18:30)
[2021-08-29] MEDS: InsuLIN REG 1unit/0.01ml Soln (100units/ml) SC SCH ×3 (05:59→18:38)
[2021-08-29] MEDS: ACCU-CHEK COMFORT CURVE STRIP VI SCH ×3 (05:59→18:30)
[2021-08-29] MEDS: PROPOFOL 100 ML IV SCH ×2 (10:15→18:00)
[2021-08-29] MEDS: methylPREDNISolone SOD SUCC 40 MG/ML VL IV SCH (10:20)
[2021-08-29] MEDS: POTASSIUM EFFERVESENT TAB 25 MEQ GT SCH ×2 (10:21→21:45)
[2021-08-29] MEDS: amLODIPine BESYLATE 5 MG TAB PO SCH (10:21)
[2021-08-29] MEDS: PANTOPRAZOLE 40 MG/10 ML VIAL INJ IV SCH ×2 (10:21→21:45)
[2021-08-29] MEDS: METOPROLOL TARTRATE 50 MG TAB NG SCH ×2 (10:21→21:45)
[2021-08-29] MEDS: ISENTRESS 400 MG GT SCH ×2 (10:22→21:45)
[2021-08-29] MEDS: PREZCOBIX GT SCH (10:24)
[2021-08-29] MEDS: ETRAVIRINE GT SCH ×2 (10:24→21:45)
[2021-08-29] MEDS: SODIUM CHLOR 0.9% PF (SALINE LOCK) 10ML VIAL/SYR IV SCH ×2 (11:15→21:45)
[2021-08-29] MEDS: ALPRAZolam 0.5 MG TAB PO SCH ×2 (15:42→21:45)
[2021-08-29 16:08] LABS: INR 1.27 (0.9-1.15)
[2021-08-29 16:11] LABS: Partial Thromboplastin Time 74.7 sec (23.6-33.0)
[2021-08-29] MEDS: ATORVASTATIN 20 MG TAB PO SCH (21:45)
[2021-08-30] VITALS (103 sets, daily range): BP systolic 112–163; BP diastolic 60–107
[2021-08-30] MEDS: ACCU-CHEK COMFORT CURVE STRIP VI SCH ×4 (00:03→18:21)
[2021-08-30] MEDS: InsuLIN REG 1unit/0.01ml Soln (100units/ml) SC SCH ×4 (00:03→18:23)
[2021-08-30 01:27] LABS: INR 1.31 (0.9-1.15)
[2021-08-30 01:40] LABS: Partial Thromboplastin Time 81.6 sec (23.6-33.0)
[2021-08-30 04:05] LABS: Basophils # (auto) 0.1 10 ^3/uL (0-0.2); Basophils % (auto) 0.8 % (0.0-2.0); Eosinophils # (auto) 0 10 ^3/uL (0-0.8); Hemoglobin 9.1 g/dL (13.5-17.5); Lymphocytes # (auto) 0.6 10 ^3/uL (0.4-5.4); Lymphocytes % (auto) 5.4 % (10.0-50.0); Mean Corpuscular Hemoglobin 32.5 pg (28.0-32.0); Mean Corpuscular Hgb Conc. 35.2 g/dL (32.0-36.0); Mean Corpuscular Volume 92.4 fL (80.0-100.0); Monocytes # (auto) 0.9 10 ^3/uL (0-1.3); Monocytes % (auto) 8.4 % (0.0-12.0); Neutrophils # (auto) 9.3 10 ^3/uL (1.6-8.6); Neutrophils % (auto) 85.4 % (37.0-80.0); Nucleated Red Blood Cells % 0.9 %; Red Blood Cells 2.82 10^6/uL (4.5-5.90); Red Cell Distribution Width 17.6 % (11.8-14.3); White Blood Cell 10.9 10^3/uL (4.4-10.8)
[2021-08-30 04:21] LABS: Calcium 8.4 mg/dL (8.5-10.1); Potassium 4.6 mmol/L (3.5-5.1)
[2021-08-30 04:25] LABS: BUN/Creatinine Ratio 53.5
[2021-08-30 05:31] LABS: INR 1.31 (0.9-1.15)
[2021-08-30 05:34] LABS: Partial Thromboplastin Time 74.6 sec (23.6-33.0)
[2021-08-30] MEDS: ALPRAZolam 0.5 MG TAB PO SCH ×3 (06:00→22:00)
[2021-08-30] MEDS: FUROSEMIDE 40 MG/4 ML VIAL IV SCH ×2 (06:06→18:23)
[2021-08-30] MEDS: POTASSIUM EFFERVESENT TAB 25 MEQ GT SCH ×2 (10:00→22:00)
[2021-08-30] MEDS: PANTOPRAZOLE 40 MG/10 ML VIAL INJ IV SCH ×2 (10:14→23:15)
[2021-08-30] MEDS: SODIUM CHLOR 0.9% PF (SALINE LOCK) 10ML VIAL/SYR IV SCH ×2 (10:14→22:00)
[2021-08-30] MEDS: METOPROLOL TARTRATE 50 MG TAB NG SCH ×2 (10:14→23:17)
[2021-08-30] MEDS: methylPREDNISolone SOD SUCC 40 MG/ML VL IV SCH (10:14)
[2021-08-30] MEDS: amLODIPine BESYLATE 5 MG TAB PO SCH (10:15)
[2021-08-30] MEDS: ETRAVIRINE GT SCH ×2 (10:17→23:20)
[2021-08-30] MEDS: PREZCOBIX GT SCH (10:18)
[2021-08-30] MEDS: ISENTRESS 400 MG GT SCH ×2 (10:18→23:21)
[2021-08-30] MEDS: HEPARIN DRIP/D5W 100UNITS/ML 250 ML IV SCH (15:33)
[2021-08-30 16:27] LABS: INR 1.31 (0.9-1.15)
[2021-08-30 16:34] LABS: Partial Thromboplastin Time 72.6 sec (23.6-33.0)
[2021-08-30] MEDS: PROPOFOL 100 ML IV SCH (18:00)
[2021-08-30] MEDS: ATORVASTATIN 20 MG TAB PO SCH (23:18)
[2021-08-31] VITALS (104 sets, daily range): BP systolic 101–195; BP diastolic 43–108
[2021-08-31] MEDS: InsuLIN REG 1unit/0.01ml Soln (100units/ml) SC SCH ×4 (00:56→18:27)
[2021-08-31 01:04] LABS: INR 1.32 (0.9-1.15); Partial Thromboplastin Time 43.7 sec (23.6-33.0)
[2021-08-31] MEDS: LABETALOL HCL 5 MG/ML 4ML SYRINGE IV PRN ×3 (01:36→20:47)
[2021-08-31] MEDS: hydrALAZINE HCL 20 MG/ML VL IV PRN ×2 (01:56→22:52)
[2021-08-31 03:55] LABS: Basophils # (auto) 0 10 ^3/uL (0-0.2); Eosinophils # (auto) 0 10 ^3/uL (0-0.8); Hematocrit 30.3 % (41.0-53.0); Lymphocytes # (auto) 0.4 10 ^3/uL (0.4-5.4); Lymphocytes % (auto) 2.2 % (10.0-50.0); Mean Corpuscular Hgb Conc. 33.1 g/dL (32.0-36.0); Mean Corpuscular Volume 93.7 fL (80.0-100.0); Monocytes # (auto) 1.4 10 ^3/uL (0-1.3); Monocytes % (auto) 7.9 % (0.0-12.0); Neutrophils # (auto) 15.4 10 ^3/uL (1.6-8.6); Neutrophils % (auto) 89.9 % (37.0-80.0); Nucleated Red Blood Cells % 0.6 %; Red Blood Cells 3.23 10^6/uL (4.5-5.90); Red Cell Distribution Width 17.8 % (11.8-14.3); White Blood Cell 17.1 10^3/uL (4.4-10.8)
[2021-08-31 04:08] LABS: INR 1.3 (0.9-1.15); Partial Thromboplastin Time 24.2 sec (23.6-33.0)
[2021-08-31 04:11] LABS: Albumin 2.9 g/dL (3.4-5.0); BUN/Creatinine Ratio 52.1; Calcium 8.4 mg/dL (8.5-10.1); Potassium 4.4 mmol/L (3.5-5.1)
[2021-08-31 04:14] LABS: Bilirubin, Total 1.8 mg/dL (0.2-1.0); Total Protein 6.5 g/dL (6.4-8.2)
[2021-08-31] MEDS: ALPRAZolam 0.5 MG TAB PO SCH ×3 (06:00→22:00)
[2021-08-31] MEDS: ACCU-CHEK COMFORT CURVE STRIP VI SCH ×4 (06:15→18:18)
[2021-08-31] MEDS: FUROSEMIDE 40 MG/4 ML VIAL IV SCH ×2 (06:17→18:16)
[2021-08-31 06:47] LABS: Urine Bacteria NONE SEEN /hpf (None Seen); Urine Blood 2+ /uL (Negative); Urine Budding Yeast FEW /hpf (None Seen); Urine Hyaline Cast MANY /lpf (0 - 2); Urine Mucus FEW (None Seen); Urine Specific Gravity 1.022 (1.001-1.035); Urine WBC 17 /hpf (0 - 3)
[2021-08-31] MEDS ORDERED: LIDOCAINE 1%-Mpf/Epinephrine 1:200,000 ONE (07:20)
[2021-08-31] MEDS ORDERED: fentaNYL Drip 2500mCg/250mlNS 250 ML IV SCH (07:30)
[2021-08-31] MEDS ORDERED: fentaNYL Drip 2500mCg/250mlNS 250 ML IV ONE (07:31)
[2021-08-31] MEDS ORDERED: MIDAZOLAM HCL 2MG/2ML 2ml VIAL (1mg/ml) ONE ×2 (08:12→08:18)
[2021-08-31] MEDS ORDERED: ROCURONIUM 10MG/ML 10ML VIAL IV ONE (08:13)
[2021-08-31] MEDS ORDERED: SUCCINYLCHOLINE CHLORIDE 20 MG/ML 10ML VIAL IV ONE (08:16)
[2021-08-31] MEDS: HEPARIN DRIP/D5W 100UNITS/ML 250 ML IV SCH (08:39)
[2021-08-31] MEDS: POTASSIUM EFFERVESENT TAB 25 MEQ GT SCH ×2 (09:30→22:00)
[2021-08-31] MEDS ORDERED: HYDROmorphone HCL 2 MG/ML VL/or syr IV PRN (09:30)
[2021-08-31] MEDS ORDERED: LABETALOL HCL 5 MG/ML 4ML SYRINGE IV PRN (09:30)
[2021-08-31] MEDS ORDERED: fentaNYL CITRATE 100 MCG/2 ML VL IV PRN (09:30)
[2021-08-31] MEDS ORDERED: ONDANSETRON HCL 4 MG/2 ML VIAL IV PRN (09:30)
[2021-08-31] MEDS: METOPROLOL TARTRATE 50 MG TAB NG SCH ×2 (09:30→22:00)
[2021-08-31] MEDS ORDERED: METOCLOPRAMIDE HCL 5MG/ml INJ 2ml VIAL IV PRN (09:30)
[2021-08-31] MEDS: PANTOPRAZOLE 40 MG/10 ML VIAL INJ IV SCH ×2 (10:16→22:00)
[2021-08-31] MEDS: methylPREDNISolone SOD SUCC 40 MG/ML VL IV SCH (10:16)
[2021-08-31] MEDS: SODIUM CHLOR 0.9% PF (SALINE LOCK) 10ML VIAL/SYR IV SCH ×2 (10:17→22:00)
[2021-08-31] MEDS: amLODIPine BESYLATE 5 MG TAB PO SCH (11:57)
[2021-08-31] MEDS: PREZCOBIX GT SCH (14:00)
[2021-08-31] MEDS: ETRAVIRINE GT SCH ×2 (14:00→22:00)
[2021-08-31] MEDS: ISENTRESS 400 MG GT SCH ×2 (14:00→22:00)
[2021-08-31] MEDS ORDERED: MORPHINE SULFATE INJ 2 MG/ml SYRG IV PRN (16:45)
[2021-08-31] MEDS: PROPOFOL 100 ML IV SCH (17:38)
[2021-08-31] MEDS ORDERED: HYDROcodone-ACET 10/325MG TAB PO PRN ×2 (18:15)
[2021-08-31] MEDS: Jevity 1.2 Cal/Fiber 1 Liter GT SCH (20:00)
[2021-08-31] MEDS: MORPHINE SULFATE INJ 2 MG/ml SYRG IV PRN ×2 (20:48→22:56)
[2021-08-31] MEDS: ATORVASTATIN 20 MG TAB PO SCH (22:00)
[2021-09-01] VITALS (105 sets, daily range): BP systolic 132–170; BP diastolic 75–98
[2021-09-01] MEDS: ACCU-CHEK COMFORT CURVE STRIP VI SCH ×4 (00:14→17:43)
[2021-09-01] MEDS: InsuLIN REG 1unit/0.01ml Soln (100units/ml) SC SCH ×4 (00:51→17:46)
[2021-09-01] MEDS: LABETALOL HCL 5 MG/ML 4ML SYRINGE IV PRN ×3 (01:00→12:46)
[2021-09-01] MEDS: MORPHINE SULFATE INJ 2 MG/ml SYRG IV PRN ×2 (01:28→20:40)
[2021-09-01 04:11] LABS: Basophils # (auto) 0 10 ^3/uL (0-0.2); Basophils % (auto) 0.2 % (0.0-2.0); Eosinophils # (auto) 0 10 ^3/uL (0-0.8); Eosinophils % (auto) 0.2 % (0.0-7.0); Hematocrit 28.5 % (41.0-53.0); Hemoglobin 9.5 g/dL (13.5-17.5); Lymphocytes # (auto) 0.4 10 ^3/uL (0.4-5.4); Mean Corpuscular Hemoglobin 31.3 pg (28.0-32.0); Mean Corpuscular Hgb Conc. 33.3 g/dL (32.0-36.0); Mean Corpuscular Volume 93.7 fL (80.0-100.0); Monocytes # (auto) 1.9 10 ^3/uL (0-1.3); Monocytes % (auto) 10.2 % (0.0-12.0); Neutrophils % (auto) 87.4 % (37.0-80.0); Nucleated Red Blood Cells % 1.6 %; Red Blood Cells 3.04 10^6/uL (4.5-5.90); Red Cell Distribution Width 18.3 % (11.8-14.3); White Blood Cell 18.3 10^3/uL (4.4-10.8)
[2021-09-01 04:30] LABS: Calcium 8.4 mg/dL (8.5-10.1)
[2021-09-01 04:33] LABS: BUN/Creatinine Ratio 54.1
[2021-09-01 04:36] LABS: Bilirubin, Total 1.7 mg/dL (0.2-1.0); Total Protein 6.4 g/dL (6.4-8.2)
[2021-09-01 04:42] LABS: INR 1.4 (0.9-1.15)
[2021-09-01] MEDS: hydrALAZINE HCL 20 MG/ML VL IV PRN ×2 (04:51→20:45)
[2021-09-01] MEDS: FUROSEMIDE 40 MG/4 ML VIAL IV SCH ×2 (05:53→17:40)
[2021-09-01 07:20] LABS: INR 1.38 (0.9-1.15); Partial Thromboplastin Time 35.9 sec (23.6-33.0)
[2021-09-01] MEDS: HEPARIN DRIP/D5W 100UNITS/ML 250 ML IV SCH ×4 (09:29→20:00)
[2021-09-01] MEDS: PANTOPRAZOLE 40 MG/10 ML VIAL INJ IV SCH ×2 (09:52→22:22)
[2021-09-01] MEDS: POTASSIUM EFFERVESENT TAB 25 MEQ GT SCH ×2 (09:52→22:22)
[2021-09-01] MEDS: SODIUM CHLOR 0.9% PF (SALINE LOCK) 10ML VIAL/SYR IV SCH ×2 (09:53→22:23)
[2021-09-01] MEDS: ALPRAZolam 0.5 MG TAB PO SCH ×2 (09:54→22:23)
[2021-09-01] MEDS: amLODIPine BESYLATE 5 MG TAB PO SCH (09:54)
[2021-09-01] MEDS: METOPROLOL TARTRATE 50 MG TAB NG SCH ×2 (09:55→22:23)
[2021-09-01] MEDS: ETRAVIRINE GT SCH ×2 (09:56→22:22)
[2021-09-01] MEDS: ISENTRESS 400 MG GT SCH ×2 (09:56→22:22)
[2021-09-01] MEDS: PREZCOBIX GT SCH (09:57)
[2021-09-01] MEDS ORDERED: methylPREDNISolone SOD SUCC 40 MG/ML VL IV SCH (10:00)
[2021-09-01 15:42] LABS: INR 1.34 (0.9-1.15); Partial Thromboplastin Time 50.1 sec (23.6-33.0)
[2021-09-01] MEDS ORDERED: WARFARIN SODIUM 2.5 MG TAB PO ONE (17:00)
[2021-09-01] MEDS: Jevity 1.2 Cal/Fiber 1 Liter GT SCH (20:00)
[2021-09-01 22:04] LABS: INR 1.32 (0.9-1.15); Partial Thromboplastin Time 55.7 sec (23.6-33.0)
[2021-09-01] MEDS: ATORVASTATIN 20 MG TAB PO SCH (22:23)
[2021-09-02] VITALS (107 sets, daily range): BP systolic 124–170; BP diastolic 72–99
[2021-09-02] MEDS: ACCU-CHEK COMFORT CURVE STRIP VI SCH ×4 (00:15→17:08)
[2021-09-02] MEDS: MORPHINE SULFATE INJ 2 MG/ml SYRG IV PRN ×2 (01:00→07:00)
[2021-09-02] MEDS: LABETALOL HCL 5 MG/ML 4ML SYRINGE IV PRN (01:52)
[2021-09-02 03:51] LABS: Basophils # (auto) 0 10 ^3/uL (0-0.2); Basophils % (auto) 0.2 % (0.0-2.0); Eosinophils # (auto) 0 10 ^3/uL (0-0.8); Hematocrit 28.2 % (41.0-53.0); Hemoglobin 9.1 g/dL (13.5-17.5); Lymphocytes # (auto) 0.3 10 ^3/uL (0.4-5.4); Lymphocytes % (auto) 1.9 % (10.0-50.0); Mean Corpuscular Hemoglobin 30.5 pg (28.0-32.0); Mean Corpuscular Hgb Conc. 32.4 g/dL (32.0-36.0); Mean Corpuscular Volume 94.1 fL (80.0-100.0); Monocytes # (auto) 1.6 10 ^3/uL (0-1.3); Neutrophils # (auto) 11.7 10 ^3/uL (1.6-8.6); Neutrophils % (auto) 85.9 % (37.0-80.0); Nucleated Red Blood Cells % 1.6 %; White Blood Cell 13.7 10^3/uL (4.4-10.8)
[2021-09-02 04:13] LABS: INR 1.3 (0.9-1.15)
[2021-09-02 04:14] LABS: Albumin 2.9 g/dL (3.4-5.0); BUN/Creatinine Ratio 60.3; Calcium 8.3 mg/dL (8.5-10.1); Potassium 3.8 mmol/L (3.5-5.1)
[2021-09-02 04:16] LABS: Bilirubin, Total 1.7 mg/dL (0.2-1.0); Total Protein 6.2 g/dL (6.4-8.2)
[2021-09-02] MEDS: hydrALAZINE HCL 20 MG/ML VL IV PRN (05:25)
[2021-09-02] MEDS: FUROSEMIDE 40 MG/4 ML VIAL IV SCH ×2 (06:00→16:57)
[2021-09-02] MEDS: InsuLIN REG 1unit/0.01ml Soln (100units/ml) SC SCH ×4 (06:00→17:09)
[2021-09-02] MEDS: PANTOPRAZOLE 40 MG/10 ML VIAL INJ IV SCH ×2 (09:11→22:15)
[2021-09-02] MEDS: methylPREDNISolone SOD SUCC 40 MG/ML VL IV SCH (09:11)
[2021-09-02] MEDS: ALPRAZolam 0.5 MG TAB PO SCH ×2 (09:12→22:16)
[2021-09-02] MEDS: POTASSIUM EFFERVESENT TAB 25 MEQ GT SCH ×2 (09:12→22:15)
[2021-09-02] MEDS: amLODIPine BESYLATE 5 MG TAB PO SCH (09:13)
[2021-09-02] MEDS: SODIUM CHLOR 0.9% PF (SALINE LOCK) 10ML VIAL/SYR IV SCH ×2 (09:14→22:15)
[2021-09-02] MEDS: METOPROLOL TARTRATE 50 MG TAB NG SCH ×2 (09:14→22:16)
[2021-09-02] MEDS: PREZCOBIX GT SCH (09:14)
[2021-09-02] MEDS: ETRAVIRINE GT SCH ×2 (09:14→22:15)
[2021-09-02] MEDS: ISENTRESS 400 MG GT SCH ×2 (09:14→22:15)
[2021-09-02] MEDS ORDERED: WARFARIN SODIUM 2.5 MG TAB PO ONE (17:00)
[2021-09-02] MEDS: HEPARIN DRIP/D5W 100UNITS/ML 250 ML IV SCH (17:01)
[2021-09-02] MEDS: Jevity 1.2 Cal/Fiber 1 Liter GT SCH (21:00)
[2021-09-02] MEDS: ATORVASTATIN 20 MG TAB PO SCH (22:16)
[2021-09-03] VITALS (109 sets, daily range): BP systolic 109–156; BP diastolic 66–94
[2021-09-03] MEDS: ACCU-CHEK COMFORT CURVE STRIP VI SCH ×4 (00:12→17:42)
[2021-09-03] MEDS: InsuLIN REG 1unit/0.01ml Soln (100units/ml) SC SCH ×4 (00:13→18:08)
[2021-09-03 00:26] LABS: INR 1.31 (0.9-1.15); Partial Thromboplastin Time 52.1 sec (23.6-33.0)
[2021-09-03 01:01] LABS: Eosinophils # (auto) 0 10 ^3/uL (0-0.8); Lymphocytes # (auto) 0.4 10 ^3/uL (0.4-5.4); Nucleated Red Blood Cells % 1.1 %
[2021-09-03 01:07] LABS: Basophils # (auto) 0 10 ^3/uL (0-0.2); Basophils % (auto) 0.1 % (0.0-2.0); Hematocrit 27.7 % (41.0-53.0); Hemoglobin 8.8 g/dL (13.5-17.5); Lymphocytes % (auto) 3.2 % (10.0-50.0); Mean Corpuscular Hemoglobin 30.1 pg (28.0-32.0); Mean Corpuscular Hgb Conc. 31.9 g/dL (32.0-36.0); Mean Corpuscular Volume 94.6 fL (80.0-100.0); Monocytes # (auto) 1.3 10 ^3/uL (0-1.3); Monocytes % (auto) 11.9 % (0.0-12.0); Neutrophils # (auto) 9.5 10 ^3/uL (1.6-8.6); Neutrophils % (auto) 84.8 % (37.0-80.0); Red Blood Cells 2.92 10^6/uL (4.5-5.90); Red Cell Distribution Width 17.7 % (11.8-14.3); White Blood Cell 11.2 10^3/uL (4.4-10.8)
[2021-09-03 01:21] LABS: Albumin 2.8 g/dL (3.4-5.0); BUN/Creatinine Ratio 58.6; Calcium 8.2 mg/dL (8.5-10.1); Potassium 4.4 mmol/L (3.5-5.1)
[2021-09-03 01:24] LABS: Bilirubin, Total 1.6 mg/dL (0.2-1.0); Total Protein 6.1 g/dL (6.4-8.2)
[2021-09-03] MEDS: MORPHINE SULFATE INJ 2 MG/ml SYRG IV PRN ×4 (02:00→13:52)
[2021-09-03] MEDS: FUROSEMIDE 40 MG/4 ML VIAL IV SCH ×2 (05:42→17:42)
[2021-09-03 06:20] LABS: INR 1.37 (0.9-1.15); Partial Thromboplastin Time 61.2 sec (23.6-33.0)
[2021-09-03] MEDS: SODIUM CHLOR 0.9% PF (SALINE LOCK) 10ML VIAL/SYR IV SCH ×2 (09:59→22:00)
[2021-09-03] MEDS: POTASSIUM EFFERVESENT TAB 25 MEQ GT SCH ×2 (10:31→22:00)
[2021-09-03] MEDS: PREZCOBIX GT SCH (10:31)
[2021-09-03] MEDS: ETRAVIRINE GT SCH ×2 (10:31→22:00)
[2021-09-03] MEDS: ISENTRESS 400 MG GT SCH ×2 (10:31→22:00)
[2021-09-03] MEDS: ALPRAZolam 0.5 MG TAB PO SCH ×2 (10:32→22:00)
[2021-09-03] MEDS: methylPREDNISolone SOD SUCC 40 MG/ML VL IV SCH (10:32)
[2021-09-03] MEDS: METOPROLOL TARTRATE 50 MG TAB NG SCH ×2 (10:32→22:00)
[2021-09-03] MEDS: amLODIPine BESYLATE 5 MG TAB PO SCH (10:32)
[2021-09-03] MEDS: PANTOPRAZOLE 40 MG/10 ML VIAL INJ IV SCH ×2 (10:32→22:00)
[2021-09-03] MEDS: HEPARIN DRIP/D5W 100UNITS/ML 250 ML IV SCH (13:58)
[2021-09-03] MEDS ORDERED: METOPROLOL TARTRATE 1MG/1ML-5ML VIAL IV ONE ×2 (14:20→14:30)
[2021-09-03] MEDS ORDERED: METOPROLOL TARTRATE 1MG/1ML-5ML VIAL IV PRN (14:30)
[2021-09-03] MEDS ORDERED: fentaNYL Drip 2500mCg/250mlNS 250 ML IV ONE (16:50)
[2021-09-03] MEDS: fentaNYL Drip 2500mCg/250mlNS 250 ML IV SCH (17:00)
[2021-09-03] MEDS ORDERED: WARFARIN SODIUM 2.5 MG TAB PO ONE (17:00)
[2021-09-03] MEDS: ATORVASTATIN 20 MG TAB PO SCH (22:00)
[2021-09-04] VITALS (105 sets, daily range): BP systolic 90–123; BP diastolic 56–81
[2021-09-04] MEDS ORDERED: PROPOFOL 100 ML IV ONE (00:53)
[2021-09-04] MEDS: MIDAZOLAM DRIP 50 mg/50mL 50 ML IV SCH (01:00)
[2021-09-04] MEDS: PROPOFOL 100 ML IV SCH ×2 (01:00→07:14)
[2021-09-04 01:14] LABS: Basophils # (auto) 0 10 ^3/uL (0-0.2); Basophils % (auto) 0.1 % (0.0-2.0); Eosinophils # (auto) 0 10 ^3/uL (0-0.8); Eosinophils % (auto) 0.1 % (0.0-7.0); Hematocrit 27.7 % (41.0-53.0); Hemoglobin 8.9 g/dL (13.5-17.5); Lymphocytes # (auto) 0.5 10 ^3/uL (0.4-5.4); Lymphocytes % (auto) 5.6 % (10.0-50.0); Mean Corpuscular Hemoglobin 30.2 pg (28.0-32.0); Mean Corpuscular Volume 94.3 fL (80.0-100.0); Monocytes % (auto) 11.6 % (0.0-12.0); Neutrophils # (auto) 7.4 10 ^3/uL (1.6-8.6); Neutrophils % (auto) 82.6 % (37.0-80.0); Nucleated Red Blood Cells % 0.9 %; Red Blood Cells 2.94 10^6/uL (4.5-5.90); Red Cell Distribution Width 17.5 % (11.8-14.3)
[2021-09-04 01:20] LABS: Calcium 8.3 mg/dL (8.5-10.1); INR 1.37 (0.9-1.15); Partial Thromboplastin Time 27.3 sec (23.6-33.0); Potassium 4.1 mmol/L (3.5-5.1)
[2021-09-04] MEDS: fentaNYL Drip 2500mCg/250mlNS 250 ML IV SCH (04:00)
[2021-09-04 05:30] LABS: Basophils # (auto) 0 10 ^3/uL (0-0.2); Basophils % (auto) 0.2 % (0.0-2.0); Eosinophils # (auto) 0 10 ^3/uL (0-0.8); Eosinophils % (auto) 0.1 % (0.0-7.0); Hematocrit 26.2 % (41.0-53.0); Hemoglobin 8.8 g/dL (13.5-17.5); Lymphocytes # (auto) 0.6 10 ^3/uL (0.4-5.4); Lymphocytes % (auto) 7.1 % (10.0-50.0); Mean Corpuscular Hemoglobin 31.5 pg (28.0-32.0); Mean Corpuscular Hgb Conc. 33.7 g/dL (32.0-36.0); Mean Corpuscular Volume 93.7 fL (80.0-100.0); Monocytes # (auto) 0.9 10 ^3/uL (0-1.3); Monocytes % (auto) 11.2 % (0.0-12.0); Neutrophils # (auto) 6.4 10 ^3/uL (1.6-8.6); Neutrophils % (auto) 81.4 % (37.0-80.0); Nucleated Red Blood Cells % 1.5 %; Red Blood Cells 2.79 10^6/uL (4.5-5.90); Red Cell Distribution Width 16.9 % (11.8-14.3); White Blood Cell 7.8 10^3/uL (4.4-10.8)
[2021-09-04 05:45] LABS: INR 1.46 (0.9-1.15)
[2021-09-04 05:48] LABS: Albumin 2.7 g/dL (3.4-5.0); BUN/Creatinine Ratio 64.5
[2021-09-04 05:51] LABS: Bilirubin, Total 1.6 mg/dL (0.2-1.0); Total Protein 5.8 g/dL (6.4-8.2)
[2021-09-04] MEDS: FUROSEMIDE 40 MG/4 ML VIAL IV SCH ×2 (05:55→17:58)
[2021-09-04] MEDS: ACCU-CHEK COMFORT CURVE STRIP VI SCH ×5 (05:55→23:43)
[2021-09-04] MEDS: InsuLIN REG 1unit/0.01ml Soln (100units/ml) SC SCH ×5 (05:55→23:45)
[2021-09-04] MEDS: POTASSIUM EFFERVESENT TAB 25 MEQ GT SCH ×2 (10:00→22:00)
[2021-09-04] MEDS: ISENTRESS 400 MG GT SCH ×2 (10:27→22:26)
[2021-09-04] MEDS: SODIUM CHLOR 0.9% PF (SALINE LOCK) 10ML VIAL/SYR IV SCH ×2 (10:27→22:27)
[2021-09-04] MEDS: PANTOPRAZOLE 40 MG/10 ML VIAL INJ IV SCH ×2 (10:27→22:23)
[2021-09-04] MEDS: PREZCOBIX GT SCH (10:27)
[2021-09-04] MEDS: ETRAVIRINE GT SCH ×2 (10:27→22:26)
[2021-09-04] MEDS: ALPRAZolam 0.5 MG TAB PO SCH ×2 (10:28→22:00)
[2021-09-04] MEDS: METOPROLOL TARTRATE 50 MG TAB NG SCH ×2 (10:28→22:28)
[2021-09-04] MEDS: methylPREDNISolone SOD SUCC 40 MG/ML VL IV SCH (10:28)
[2021-09-04] MEDS: amLODIPine BESYLATE 5 MG TAB PO SCH (10:28)
[2021-09-04] MEDS ORDERED: WARFARIN SODIUM 2.5 MG TAB PO ONE (17:00)
[2021-09-04] MEDS: ATORVASTATIN 20 MG TAB PO SCH (22:23)
[2021-09-05] VITALS (100 sets, daily range): BP systolic 97–158; BP diastolic 60–104
[2021-09-05 01:08] LABS: INR 2.61 (0.9-1.15); Partial Thromboplastin Time 26.2 sec (23.6-33.0)
[2021-09-05] MEDS ORDERED: HEPARIN DRIP/D5W 100UNITS/ML 250 ML IV SCH (01:45)
[2021-09-05] MEDS ORDERED: HEPARIN SODIUM (PORCINE) 5000 UNITS/ML 1ML VIAL IV PRN (02:00)
[2021-09-05 04:49] LABS: INR 3.26 (0.9-1.15); Partial Thromboplastin Time 24.1 sec (23.6-33.0)
[2021-09-05] MEDS: InsuLIN REG 1unit/0.01ml Soln (100units/ml) SC SCH ×3 (05:33→18:44)
[2021-09-05] MEDS: ACCU-CHEK COMFORT CURVE STRIP VI SCH ×3 (05:33→18:43)
[2021-09-05] MEDS: FUROSEMIDE 40 MG/4 ML VIAL IV SCH ×2 (05:33→18:43)
[2021-09-05] MEDS: MIDAZOLAM DRIP 50 mg/50mL 50 ML IV SCH (07:20)
[2021-09-05 10:20] LABS: INR 3.85 (0.9-1.15); Partial Thromboplastin Time 27.6 sec (23.6-33.0)
[2021-09-05] MEDS: fentaNYL Drip 2500mCg/250mlNS 250 ML IV SCH ×2 (11:00→16:45)
[2021-09-05] MEDS: ETRAVIRINE GT SCH ×2 (11:05→22:12)
[2021-09-05] MEDS: ISENTRESS 400 MG GT SCH ×2 (11:08→22:12)
[2021-09-05] MEDS: PREZCOBIX GT SCH (11:08)
[2021-09-05] MEDS: POTASSIUM EFFERVESENT TAB 25 MEQ GT SCH ×2 (11:11→22:00)
[2021-09-05] MEDS: SODIUM CHLOR 0.9% PF (SALINE LOCK) 10ML VIAL/SYR IV SCH ×2 (11:12→22:11)
[2021-09-05] MEDS: ALPRAZolam 0.5 MG TAB PO SCH ×2 (11:13→22:00)
[2021-09-05] MEDS: amLODIPine BESYLATE 5 MG TAB PO SCH (11:13)
[2021-09-05] MEDS: METOPROLOL TARTRATE 50 MG TAB NG SCH ×2 (11:13→22:13)
[2021-09-05] MEDS: methylPREDNISolone SOD SUCC 40 MG/ML VL IV SCH (11:14)
[2021-09-05] MEDS: PANTOPRAZOLE 40 MG/10 ML VIAL INJ IV SCH ×2 (11:57→22:10)
[2021-09-05 17:01] LABS: INR 4.61 (0.9-1.15)
[2021-09-05] MEDS: ATORVASTATIN 20 MG TAB PO SCH (22:11)
[2021-09-06] VITALS (77 sets, daily range): BP systolic 101–156; BP diastolic 53–94
[2021-09-06] MEDS: ACCU-CHEK COMFORT CURVE STRIP VI SCH ×4 (00:09→17:05)
[2021-09-06] MEDS: InsuLIN REG 1unit/0.01ml Soln (100units/ml) SC SCH ×4 (00:10→17:05)
[2021-09-06 04:58] LABS: INR 3.25 (0.9-1.15)
[2021-09-06] MEDS: FUROSEMIDE 40 MG/4 ML VIAL IV SCH (05:15)
[2021-09-06 08:20] LABS: Albumin 2.8 g/dL (3.4-5.0); Calcium 8.5 mg/dL (8.5-10.1); Potassium 4.1 mmol/L (3.5-5.1)
[2021-09-06 08:23] LABS: BUN/Creatinine Ratio 54.3; Bilirubin, Total 1.7 mg/dL (0.2-1.0); Total Protein 6.4 g/dL (6.4-8.2)
[2021-09-06] MEDS: amLODIPine BESYLATE 5 MG TAB PO SCH (08:49)
[2021-09-06] MEDS: POTASSIUM EFFERVESENT TAB 25 MEQ GT SCH (08:49)
[2021-09-06] MEDS: ALPRAZolam 0.5 MG TAB PO SCH (08:49)
[2021-09-06] MEDS: methylPREDNISolone SOD SUCC 40 MG/ML VL IV SCH (08:50)
[2021-09-06] MEDS: METOPROLOL TARTRATE 50 MG TAB NG SCH (08:50)
[2021-09-06] MEDS: PANTOPRAZOLE 40 MG/10 ML VIAL INJ IV SCH (08:51)
[2021-09-06] MEDS: ISENTRESS 400 MG GT SCH (08:51)
[2021-09-06] MEDS: SODIUM CHLOR 0.9% PF (SALINE LOCK) 10ML VIAL/SYR IV SCH (08:51)
[2021-09-06] MEDS: ETRAVIRINE GT SCH (08:51)
[2021-09-06] MEDS: PREZCOBIX GT SCH (08:51)
[2021-09-06] MEDS: fentaNYL Drip 2500mCg/250mlNS 250 ML IV SCH (09:01)
== END 2021-09-06 18:21 | DRG 5 ==
LOC: ER 15:32 → ICU WEST 21:29 → TELE 08-11 11:32 → ICU WEST 08-11 11:33
PROVIDERS: ADMIT Nurse Practitioner Family; ATTEND Hospitalist
PROC: 5A1955Z Respiratory Ventilation, Greater than 96 Consecutive Hours (ICD-10-PCS; principal; 2021-08-06)
PROC: 0BH17EZ Insertion of Endotracheal Airway into Trachea, Via Natural or Artificial Opening (ICD-10-PCS; 2021-08-06)
PROC: 0DJ08ZZ Inspection of Upper Intestinal Tract, Via Natural or Artificial Opening Endoscopic (ICD-10-PCS; 2021-08-11)
PROC: 0BC38ZZ Extirpation of Matter from Right Main Bronchus, Via Natural or Artificial Opening Endoscopic (ICD-10-PCS; 2021-08-11)
PROC: 0BC38ZZ Extirpation of Matter from Right Main Bronchus, Via Natural or Artificial Opening Endoscopic (ICD-10-PCS; 2021-08-16)
PROC: 0B110F4 Bypass Trachea to Cutaneous with Tracheostomy Device, Open Approach (ICD-10-PCS; 2021-08-31)
DX: J96.02 Acute respiratory failure with hypercapnia (principal); N17.0 Acute kidney failure with tubular necrosis; R57.9 Shock, unspecified; J69.0 Pneumonitis due to inhalation of food and vomit; I50.33 Acute on chronic diastolic (congestive) heart failure; D68.9 Coagulation defect, unspecified; I27.20 Pulmonary hypertension, unspecified; J44.0 Chronic obstructive pulmonary disease with (acute) lower respiratory infection; J44.1 Chronic obstructive pulmonary disease with (acute) exacerbation; K92.2 Gastrointestinal hemorrhage, unspecified; Z20.822 Contact with and (suspected) exposure to COVID-19; J96.01 Acute respiratory failure with hypoxia; E11.22 Type 2 diabetes mellitus with diabetic chronic kidney disease; B19.20 Unspecified viral hepatitis C without hepatic coma; E11.65 Type 2 diabetes mellitus with hyperglycemia; E66.01 Morbid (severe) obesity due to excess calories; E87.5 Hyperkalemia; Z68.32 Body mass index [BMI] 32.0-32.9, adult; I25.10 Atherosclerotic heart disease of native coronary artery without angina pectoris; N18.9 Chronic kidney disease, unspecified; N39.0 Urinary tract infection, site not specified; I13.0 Hypertensive heart and chronic kidney disease with heart failure and stage 1 through stage 4 chronic kidney disease, or unspecified chronic kidney disease; I35.0 Nonrheumatic aortic (valve) stenosis; K21.9 Gastro-esophageal reflux disease without esophagitis; J98.11 Atelectasis; T38.0X5A Adverse effect of glucocorticoids and synthetic analogues, initial encounter; I16.0 Hypertensive urgency; R13.10 Dysphagia, unspecified; Z99.11 Dependence on respirator [ventilator] status; J95.01 Hemorrhage from tracheostomy stoma; E78.5 Hyperlipidemia, unspecified; Z21 Asymptomatic human immunodeficiency virus [HIV] infection status
CPT/HCPCS: 31500; 31645; 36415; 36569; 36600; 43235; 70450; 71045; 76775; 80048; 80053; 81001; 82306; 82550; 82570; 82805; 82962; 83036; 83605; 83735; 83935; 83970; 84156; 84300; 84484; 85007; 85025; 85027; 85576; 85610; 85730; 86803; 86850; 86900; 86901; 87040; 87070; 87081; 87086; 87088; 87186; 87205; 87340; 93005; 93306; 93971; 94002; 94003; 94640; 94644; 96365; 96367; 96368; 96375; 99291; A4605; A4618; C9113; G0378; J0171; J0330; J0696; J1815; J2250; J2543; J2704; J3490; J7060